=== PATIENT | female | born 1960 | race Caucasian/White ===

== ENCOUNTER 2020-09-08 14:23 | Inpatient (IN) | payer MEDICARE, SELFPAY ==
[2020-09-08] VITALS (11 sets, daily range): BP systolic 149–192; BP diastolic 60–97; PULSE 70–85; RESP 14–29; TEMP 36.4–36.6; O2SAT 97–100
--- NOTE | ~2020-09-08 | XR_ITS ---
EXAMINATION: XR chest 1V portable DATE: 09/09/2020 18:27 INDICATION: Fall. TECHNIQUE: A single frontal view of the chest was obtained. COMPARISON: Chest single view 09/29/2018 FINDINGS: There is mild atelectasis in left lower lung zone. No pleural effusion or pneumothorax. Car diomegaly is noted. There is a vascular stent overlying left subclavian region. There is a vascular s tent in left axilla. IMPRESSION: 1. Mild atelectasis in left lower lung zone. 2. Cardiomegaly. Reviewed, dictated and finalized at location A. E MACHINE OPERATOR
--- NOTE | ~2020-09-08 | XR_ITS ---
EXAMINATION: XR surgery orthopedic DATE: 09/11/2020 14:17 INDICATION: Intertrochanteric nailing of a right hip fracture. TECHNIQUE: 2 fluoroscopic spot images of the right hip were obtained during procedure performed by Dr Rogerio Yang. Radiologist was not present for the imaging or procedure. The amount of fluoroscopy time used during this procedure was 2.4 minutes. COMPARISON: CT dated 09/09/2020 FINDINGS: Lateral reduction to near-anatomic alignment of the transcervical fracture of the proximal right femu r. The fracture is fixed with cannulated lag screw spanning the femoral head as well as a lateral angely te and distal screws and femoral neck dynamic compression screw. No other fractures identified. Right femoral head remains normally centered within the right acetabulum. IMPRESSION: 1. Essentially anatomic alignment post open reduction and internal fixation of a transcervical fractu re of the proximal right femur. Reviewed, dictated and finalized at location A. SNAPPER IMPRESSION: 1. Essentially anatomic alignment post open reduction and internal fixation of a transcervical fracture of the proximal right femur.
--- NOTE | ~2020-09-08 | XR_ITS ---
EXAMINATION: XR knee RT min 4V EXAM DATE: 09/08/2020 15:08 INDICATION: Fall, limited range of motion. Right knee pain. Initial encounter. TECHNIQUE: Right knee frontal, crosstable lateral, orthogonal oblique projections for interpretation . There is no prior study for comparison. FINDINGS: There is an intact right knee arthroplasty hardware. There are no acute fractures or dislo cations identified. There is no subcutaneous gas. There is small joint effusion. There are arterial calcifications, arteriosclerosis. IMPRESSION: Intact right knee arthroplasty. Small joint effusion. Reviewed, dictated and finalized at location B. EM SOFTWARE PROGRAMMER
--- NOTE | ~2020-09-08 | XR_ITS ---
EXAMINATION: XR hip RT 2V w AP pelvis DATE: 09/08/2020 16:59 INDICATION: Right hip pain. Fall. TECHNIQUE: An anteroposterior view of the pelvis and 3 views of right hip were obtained. COMPARISON: None. FINDINGS: There is a transcervical fracture of right femoral neck. The distal fracture fragment demon strates 30 degrees varus angulation and 2 cm shortening. The hip joint spaces are normal. There are c hanges of posterior fusion procedure of lumbar spine. IMPRESSION: 1. Transcervical fracture of right femoral neck. Reviewed, dictated and finalized at location A. H BURNER
--- NOTE | ~2020-09-08 | CT_ITS ---
EXAMINATION: CT hip RT wo con DATE: 09/09/2020 09:54 INDICATION: Right hip fracture. TECHNIQUE: High resolution computed tomography (CT) of the right hip was performed without intravenou s contrast. Additional sagittal and coronal reconstructions were performed. Automated exposure contro l and iterative reconstruction technique were employed. The dose-length product was 282.75 mGy-cm. COMPARISON: None FINDINGS: There is a transcervical fracture of the proximal right femur. There is proximal migration and charge rn al rotation of the distal fragment resulting in approximately 50 degree varus angulation as well as a dditional 7 mm proximal displacement along the fracture line. The external rotation is associated wit h approximately 50 degrees posterior angulation with mild impaction along the posterior margin of the fracture and approximately 5 mm separation of the cortices along the anterior margin of the fracture plane. The right femoral head remains normally located in the right acetabulum with mild osteoarthri tis. No significant right hip joint effusion or appreciable surrounding hematoma. No other fractures identified. There are some fatty atrophy of the right gluteus minimus muscle belly. Small enthesophyt es along the greater trochanteric insertion of the gluteus medius medius and minimus tendons. IMPRESSION: 1. Transcervical fracture of the proximal right femur with proximal migration, external rotation and mild displacement. Reviewed, dictated and finalized at location A. LOADER
--- NOTE | 2020-09-08 14:38 | PC.NURSE ---
Per pt at [facility] sciatic nerve and right hip. Was given muscle relaxor and pain pill and sent home. Per pt did not go to dialysis today.
[2020-09-08 15:47] LABS: Basophils Percent Auto 0.2 % (0.2-1.2); Eosinophils Absolute Auto 0.1 K/mm3 (0-0.3); Eosinophils Percent Auto 0.6 % (0-4.4); Hematocrit 37.3 % (37.0-47.0); Hemoglobin 12.2 g/dL (12.0-15.0); Immature Granulocyte Absolute 0.03 K/mm3 (0.00-0.031); Immature Granulocyte Percent A 0.3 % (0-0.5); Lymphocytes Absolute Auto 1.49 K/mm3 (0.9-3.2); Lymphocytes Percent Auto 16.1 % (18.3-44.2); Mean Corpuscular HGB Conc 32.7 g/dl (32-36); Mean Corpuscular Hemoglobin 29.5 pg (26-34); Mean Corpuscular Volume 90.1 fl (80-100); Monocytes Absolute Auto 0.6 K/mm3 (0.1-0.6); Monocytes Percent Auto 5.9 % (2.6-8.5); Neutrophils Absolute Auto 7.1 K/mm3 (1.3-6.7); Neutrophils Percent Auto 76.9 % (45.5-73.1); Platelet Count Result 226 k/mm3 (150-375); Red Blood Count 4.14 M/mm3 (4.2-5.4); Red Cell Distribution Width 14.6 % (11.5-14.5); White Blood Count 9.3 K/mm3 (4.5-10.0)
[2020-09-08 15:58] LABS: Magnesium 2.8 mg/dL (1.6-2.3); Phosphorus 4.8 mg/dL (2.5-4.5)
[2020-09-08 16:02] LABS: Anion Gap 20 mmol/L (8-16); Blood Urea Nitrogen 93 mg/dL (7-17); Calcium 9.4 mg/dL (8.4-10.2); Carbon Dioxide 26 mmol/L (22-30); Chloride 89 mmol/L (98-107); Estimated CRCL calculation 5 ml/min; Estimated Glomerular Filt Rate 3; Glucose 198 mg/dL (65-105); Potassium 6.1 mmol/L (3.4-5.0); Sodium 135 mmol/L (137-145)
--- NOTE | 2020-09-08 16:12 | ECG_ITS ---
Measurements Intervals [place] Rate: 70 P: 52 VT: 179 QRS: 33 QRSD: 91 T: 65 QT: 405 QTc: 440 Interpretive Statements SINUS RHYTHM LOW QRS VOLTAGE IN PRECORDIAL LEADS BASELINE ARTIFACT- I, III, AVL BORDERLINE ECG Electronically Signed On 09-09-2020 7:53:37 DIRECTOR OF CONSUMER MARKETING by Kamran Clark D.O.
[2020-09-08] MEDS: CALCIUM GLUCONATE 1,000 MG/10 ML VIAL 1000 MG IV PUSH (16:25)
[2020-09-08] MEDS: SODIUM BICARBONATE 8.4% 50 MEQ/50 ML VIAL IV PUSH (16:25)
[2020-09-08] MEDS: INSULIN HUMAN REGULAR (*BKC) 100 UNITS/ML 10 UNITS IV PUSH (16:25)
[2020-09-08] MEDS: DEXTROSE 50% 25 GM/50 ML SYRINGE IV PUSH (16:25)
--- NOTE | 2020-09-08 16:30 | PC.NURSE ---
Assumed care of pt at this time. Pt is alert and upright on stretcher. Pt placed on tele monitor per EDP VORB.
--- NOTE | 2020-09-08 16:32 | ED.GENADULT ---
HPI - General Adult General Chief complaint: Extremity Injury, Lower Stated complaint: Right Knee Pain Time Seen by Provider: 09/08/20 14:39 Source: patient Mode of arrival: EMS Limitations: no limitations History of Present Illness HPI narrative: Patient is a 59-year-old female who presents to emergency department for evaluation of right knee pain patient was returning home today and upon trying to enter her home had a pop in the right knee and has since had moderate to severe pain with inability to bear weight patient notes that she had been seen at an outside hospital today due to back pain over the last several days radiating down the right leg was diagnosed with sciatica had imaging performed and was sent home with pain pills and muscle relaxers which made her lightheaded per patient. Patient denies any injury or trauma or having fallen. On arrival patient with difficulty with movement of the right leg with pain on palpation of the knee. Patient missed dialysis today and is followed by Dr. Bobby notes that she did have dialysis on Tuesday. Related Data Home Medications Medication Instructions Recorded Confirmed sevelamer carbonate [Renvela] 800 mg PO TID 05/21/19 08/14/19 vitamin B complex-vitamin C-folic 1 tablet PO DAILY 08/14/19 08/14/19 acid 0.8 mg tablet Allergies Allergy/AdvReac Type Severity Reaction Status Date / Time amoxicillin Allergy Swelling Verified 09/08/20 14:40 iodine Allergy Other Verified 09/08/20 14:40 Review of Systems Review of Systems: All systems reviewed & are unremarkable except as noted in HPI and below PMFSH Past Medical History Medical History (Updated 09/08/20 @ 18:03 by Tien Knox PA-C) CHF (congestive heart failure) EF 35% CKD (chronic kidney disease) Stage V Diabetes type 2, controlled Dialysis patient , [place], Sat Family History Family History Father Cerebrovascular accident Family history of coronary artery disease Mother Family history of diabetes mellitus in first degree relative Family history of malignant neoplasm of bone Family history of malignant neoplasm of cervix Sibling Hypertension Social History Social History Smoking status: Never smoker Second hand tobacco smoke exposure: No Alcohol intake: never Gender identity (if verbalized by the patient): Female Exam Narrative: Exam Narrative: GENERAL: Well-appearing, obese, and in no acute distress. HEAD: Normocephalic, atraumatic. EYES: PERRLA and EOMI. ENT: Nares clear, no rhinorrhea or epistaxis. Mucous membranes moist. NECK: Supple. No adenopathy or masses. CHEST: Clear to auscultation. No respiratory distress. No wheezes rales or rhonchi HEART: Regular rate and rhythm. No murmur heard. Normal peripheral pulses. ABDOMEN: Soft, nontender,distended EXTREMITIES: Tenderness of the right knee joint no obvious deformities minimal swelling if any. Also notes tenderness of the right hip. No cervical thoracic lumbar tenderness on palpation SKIN: Warm, dry, no rash. NEURO: No focal deficits. Alert and oriented x3. Neurovascularly intact. Cap refill less than 2 seconds PSYCH: Normal mood and affect. Course Consultations Consultation #1: Patient case discussed with nephrology who will plan to do dialysis tomorrow patient will be placed in hospital treated for her elevated potassium. Patient will be consulted by orthopedic surgery admitted to the hospitalist service Date: 09/08/20 Time: 16:46 Consultation #2: Discussed case with hospitalist who is aware of the patient has agreed to accept the patient Date: 09/08/20 Time: 17:14 Consultation #3: Discussed case with Dr. Yang who will consult on patient Date: 09/08/20 Time: 18:01 Vital Signs Vital signs: Vital Signs Temperature 97.8 F 09/08/20 14:31 Pulse Rate 70 09/08/20 14:31 Respiratory Rate 20 09/08/20 1
--- NOTE | 2020-09-08 16:36 | PC.NURSE ---
Pt to XRAY via stretcher at this time.
[2020-09-08] MEDS: MORPHINE SULFATE (*CRX) 4 MG/ML INJ IV PUSH ×3 (17:42→22:35)
[2020-09-08 18:02] LABS: Glucose Point of Care 131 (65-105)
--- NOTE | 2020-09-08 19:00 | PC.NURSE ---
Assumed care of pt. at this time. report from MELLY Duarte
--- NOTE | 2020-09-08 19:21 | PC.NURSE ---
CT called to bean picker machine operator pt. for imaging.
[2020-09-08 21:40] LABS: Glucose Point of Care 206 (65-105)
[2020-09-08 22:35] LABS: Potassium 5.7 mmol/L (3.4-5.0)
--- NOTE | 2020-09-08 23:44 | PM.IMHP ---
H&P: HPI History of Present Illness Date/Time: 09/08/20 23:44 Chief Complaint: Right knee pain Narrative: Kate Bentley is a 59 year old female with a past medical history of end-stage renal disease on hemodialysis Tuesday and type 2 diabetes mellitus who presented to the ER after sudden onset of pain in her right leg. The patient reports that she woke up on the morning of the . She was having pain in her SI region. She went to the hospital in [place] and they did x-rays and was diagnosed with sciatica. She was discharged home with pain medications and muscle relaxers. She took those medications but they made her lightheaded. When she was trying to get out of her car to go inside after she had went to [place] she felt a sharp pop in her knee. She stated that she did not actually fall but does could not put any weight on her leg. She reported that the pain was severe. The pain was similar to the pain she had earlier in the day. The pain was severe and she reported that she felt like she was going to pass out due to the pain. Pain is worse with any movement. She reports that the pain was so bad that she did not go to hemodialysis. She denies any shortness of breath, palpitations or chest pain. She has not had any nausea or vomiting. She reports a good appetite. She denies any changes in her bowel habits. She does not making urine. Review of Systems Review of Systems: Narrative: 12 systems were reviewed with pertinent positives and negatives per HPI. Except as documented in the HPI, all other systems were reviewed and are negative. [facility] Past Medical History Medical History (Updated 09/09/20 @ 00:01 by Rebecca Collins DO) Anemia in chronic kidney disease CHF (congestive heart failure) EF 35% End-stage renal disease on hemodialysis On hemodialysis since June 2017; dialysis Tuesday followed by Dr. Kaur Iron deficiency anemia Kidney stones Type 2 diabetes mellitus 07/31/2020 hemoglobin A1c 7.1 Surgical History Surgical History (Updated 09/09/20 @ 01:17 by Rebecca Collins DO) AV fistula Left upper arm AV fistula created 2017 H/O arthroscopy of right knee History of bilateral carpal tunnel release History of left knee replacement August 2018 History of lumbar surgery Spinal stenosis History of total right knee replacement May 2018 Family History Family History (Updated 09/08/20 @ 23:59 by Rebecca Collins DO) Father , in his 40s of premature coronary artery disease Cerebrovascular accident Heart disease Mother Diabetes mellitus Bone cancer Cervical cancer Sibling , of heart disease in his 50s Hypertension Heart disease Diabetes mellitus Social History Social History (Updated 09/08/20 @ 23:56 by Rebecca Collins DO) Social History: 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 1 daughter who is 24 years old. Smoking status: Never smoker Second hand tobacco smoke exposure: No Alcohol intake: never Substance use: never Gender identity (if verbalized by the patient): Male Spiritual care concerns: No Meds Home Medications and Allergies Home Medications Medication Instructions Recorded Confirmed Type sevelamer carbonate [Renvela] 800 mg PO TID 05/21/19 09/08/20 History vitamin B complex-vitamin C-folic 1 tablet PO DAILY 08/14/19 09/08/20 History acid 0.8 mg tablet insulin aspart U-100 100 unit/mL See Rx Instructions .ROUTE 07/31/20 09/08/20 Rx subcutaneous solution .COMPLEX #30 ml flash glucose sensor #6 ea 08/18/20 09/08/20 Rx insulin syringe-needle U-100 0.3 See Rx Instructions .ROUTE 08/28/20 09/08/20 Rx mL 31 gauge x 15/64 .COMPLEX #100 syringe insulin detemir U-100 [Levemir 25 unit SUB-Q DAILY 09/08/20 09/08/20 History U-100 Insulin] midodrine See Rx Instructions .ROUTE .COMPLEX 09/08/20 09/08/20 History Allergies Allergy/AdvReac Type Nereyda
[2020-09-09] VITALS (23 sets, daily range): BP systolic 100–197; BP diastolic 51–89; PULSE 77–128; RESP 18–20; TEMP 36.6–37.4; O2SAT 94–95
[2020-09-09] MEDS: INSULIN ASPART (*BKC) 100 UNITS/ML SUB-Q (00:30)
[2020-09-09] MEDS: SODIUM BICARBONATE 8.4% 50 MEQ/50 ML SYRINGE IV PUSH (00:42)
[2020-09-09] MEDS: CALCIUM GLUCONATE 1,000 MG/10 ML VIAL 1000 MG IV PUSH (00:48)
[2020-09-09] MEDS: MORPHINE SULFATE (*CRX) 4 MG/ML INJ IV PUSH ×6 (01:06→18:42)
[2020-09-09 06:45] LABS: Basophils Percent Auto 0.1 % (0.2-1.2); Eosinophils Absolute Auto 0.1 K/mm3 (0-0.3); Eosinophils Percent Auto 0.7 % (0-4.4); Hemoglobin 11.1 g/dL (12.0-15.0); Immature Granulocyte Absolute 0.03 K/mm3 (0.00-0.031); Immature Granulocyte Percent A 0.3 % (0-0.5); Lymphocytes Percent Auto 11.2 % (18.3-44.2); Mean Corpuscular HGB Conc 32.6 g/dl (32-36); Mean Corpuscular Hemoglobin 29.8 pg (26-34); Mean Corpuscular Volume 91.2 fl (80-100); Mean Platelet Volume 10.2 fl (7.4-10.4); Monocytes Absolute Auto 0.7 K/mm3 (0.1-0.6); Monocytes Percent Auto 6.7 % (2.6-8.5); Neutrophils Absolute Auto 7.9 K/mm3 (1.3-6.7); Platelet Count Result 177 k/mm3 (150-375); Red Blood Count 3.73 M/mm3 (4.2-5.4); Red Cell Distribution Width 14.6 % (11.5-14.5); White Blood Count 9.8 K/mm3 (4.5-10.0)
[2020-09-09 07:02] LABS: Alanine Aminotransferase 16 U/L (4-35); Albumin Level 3.8 g/dL (3.5-5.1); Alkaline Phosphatase 123 U/L (38-126); Anion Gap 17 mmol/L (8-16); Aspartate Amino Transferase 27 U/L (14-36); Bilirubin,Total 1.1 mg/dL (0.2-1.3); Blood Urea Nitrogen 94 mg/dL (7-17); Calcium 8.8 mg/dL (8.4-10.2); Carbon Dioxide 28 mmol/L (22-30); Chloride 85 mmol/L (98-107); Estimated CRCL calculation 5 ml/min; Estimated Glomerular Filt Rate 3; Glucose 198 mg/dL (65-105); Potassium 5.8 mmol/L (3.4-5.0); Sodium 130 mmol/L (137-145)
[2020-09-09 08:23] LABS: Glucose Point of Care 193 (65-105)
--- NOTE | 2020-09-09 08:54 | PC.NURSE ---
Spoke with Dr. Dutton on if he wanted 25 units of levimer this morning. He said to hold it d/t her having dialysis today and possible hip surgery. Her blood sugar was 193 this morning.
[2020-09-09 10:47] LABS: Hepatitis B Surface Antigen Negative (Negative)
[2020-09-09 11:11] LABS: Hepatitis B Surface Anti Res Positive
--- NOTE | 2020-09-09 11:25 | PM.IMPN ---
Progress Note: A&P Assessment and Plan (1) Acute hyperkalemia: Code(s): E87.5 - Hyperkalemia Status: Acute Assessment and Plan: Patient repeat potassium is 5.8 patient is going to get dialysis today and hopefully after dialysis patient electrolytes were normalized. (2) End-stage renal disease on hemodialysis: Code(s): N18.6 - End stage renal disease; Z99.2 - Dependence on renal dialysis Status: Acute Assessment and Plan: Nephrology consult in dialysis schedule. (3) Closed fracture of right hip: Qualifiers: Encounter type: initial encounter Qualified Code(s): S72.001A - Fracture of unspecified part of neck of right femur, initial encounter for closed fracture Code(s): S72.001A - Fracture of unspecified part of neck of right femur, initial encounter for closed fracture Status: Acute Assessment and Plan: Orthopedic consult ordered. Hemoglobin stable. (4) Type 2 diabetes mellitus with hyperglycemia: Qualifiers: Diabetes mellitus terminal system operator insulin use: with jail use Qualified Code(s): E11.65 - Type 2 diabetes mellitus with hyperglycemia; Z79.4 - manager intermediate (current) use of insulin Code(s): E11.65 - Type 2 diabetes mellitus with hyperglycemia Status: Acute Assessment and Plan: Stable on current medication. Additional Plan Patient who presented to the ER with knee pain and found to have a right femoral neck fracture. Patient is receiving pain medications with good relief in symptoms. Patient denies chest pain shortness of breath or palpitations. She does have end-stage renal disease on hemodialysis and is hyperkalemic. Her hyperkalemia has improved but not resolved since administration of bicarb, calcium, insulin and dextrose in the ER. The patient will receive hemodialysis in a.m.. Once her electrolyte abnormalities have stabilized the patient will be medically stable for surgical repair. Patient's electrolytes and glucoses will need to be monitored closely in the postoperative period. Patient has been resume the home Levemir and has been placed on sliding scale insulin. This document was completed by using [employer] Direct speech recognition software, therefore, video tape transferrer variances may occur. Despite proof reading and review of records errors may persist. Subjective Date/time seen: 09/09/20 11:25 Interval history: Patient was seen during the morning rounds today. Patient today pain is under control. Patient denies any shortness of breath or chest pain. Mood stable. Review of Systems Review of Systems: All systems reviewed & are unremarkable except as noted in HPI and below (the history and physical exam.) Exam Narrative: Exam Narrative: PHYSICAL EXAM: WEIGHT 100 kg BMI 39.1 General: No acute distress, appears older than stated age, obese HEENT: Mucous membranes are dry, no oral pharyngeal erythema, good dentition, pupils are equal and reactive, head is normocephalic atraumatic, large neck circumference Respiratory: Clear to auscultation bilaterally, no increased work of Cardiovascular: Regular rate, regular rate, regular rhythm, no murmurs Gastrointestinal:, distended, nontender, positive bowel sounds Skin: Generalized pallor, non jaundice Musculoskeletal: No clubbing, cyanosis or edema, pain in the right knee and hip with any movement of the legs, leg is not rotated or shortened Neurological: Alert and oriented, speech is clear, no facial asymmetry Psychiatric: Appropriate mood and affect, cooperative : Deferred Hematologic/lymphatic: No petechiae, no bruising, no lymphadenopathy Objective Data Vital Signs Vital Signs: Vital Signs - 24 hr 09/08/20 14:31 09/08/20 17:00 09/08/20 17:42 Temperature 36.6 C Pulse Rate 70 76 77 Respiratory Rate 20 26 H 24 H Blood Pressure 175/76 H 183/76 H 192/72 H Pulse Oximetry 99 100 100 09/08/20 18:44 09/08/20 19:25 09/08/20 19:27 Temperature Puls
--- NOTE | 2020-09-09 11:27 | PC.NURSE ---
[place] traction started at 0830am.to right leg.
--- NOTE | 2020-09-09 12:22 | PM.PNNEP ---
Subjective Date/time seen: 09/09/20 12:22 Objective Data Vital Signs Vital Signs: Vital Signs Temp Pulse Resp BP Pulse Ox 09/09/20 08:00 98 20 95 09/09/20 06:00 36.9 C 88 20 135/52 L 95 09/09/20 04:00 82 09/09/20 00:00 86 09/08/20 20:15 36.4 C 85 20 164/60 H 100 09/08/20 19:47 80 15 149/62 H 09/08/20 19:45 84 29 H 97 09/08/20 19:32 75 23 H 150/66 H 99 09/08/20 19:30 79 14 99 09/08/20 19:27 81 28 H 173/97 H 09/08/20 19:25 75 25 H 09/08/20 18:44 77 16 160/78 H 100 09/08/20 17:42 77 24 H 192/72 H 100 09/08/20 17:00 76 26 H 183/76 H 100 09/08/20 14:31 36.6 C 70 20 175/76 H 99 Intake/Output Intake/Output: Intake & Output 09/06/20 09/07/20 09/08/20 09/09/20 23:59 23:59 23:59 23:59 Intake Total 100 240 Balance 100 240 Meds/Results Medications: Active Medications Generic Name Dose Route Start Last Admin Trade Name Freq PRN Reason Stop Dose Admin Glucagon 1 mg 09/08/20 18:10 Glucagon For Inj 1 Mg Vial IM PRN PRN Hypoglycemia Protocol Dextrose 1,000 mls @ 100 mls/hr 09/08/20 18:10 Dextrose 5% 1,000 Ml IVPB PRN PRN Hypoglycemia Protocol Albumin Human 50 mls @ 999 mls/hr 09/09/20 06:54 Albutein IVPB 10/09/20 06:55 Q10M PRN HYPOTENSION Insulin Aspart 4 - 8 units 09/09/20 08:00 09/09/20 08:33 Insulin Aspart (*Bkc) 100 Units/Ml SUB-Q Not Given TIDWM RENEA Protocol Insulin Detemir 25 units 09/09/20 09:00 Insulin Detemir 100 Units/Ml SUB-Q 10/09/20 09:01 DAILY RENEA Midodrine 5 mg 09/10/20 09:00 Midodrine Hcl 2.5 Mg Tablet BY MOUTH MoWeFr [facility] Morphine Sulfate 4 mg 09/08/20 18:07 09/09/20 07:35 Morphine Sulfate (*Crx) 4 Mg/Ml Inj IV PUSH 4 mg Q2H PRN Administration Pain Rated 7-10 Sevelamer Carbonate 800 mg 09/09/20 08:00 Sevelamer Carbonate 800 Mg Tablet PO TIDWM [facility] Vitamin B Complex/Folic Acid 1 cap 09/09/20 09:00 Vitamin B Cmplx/Vit C/Folic Ac 1 Capsule PO QAM [facility] Radiology Results: ITS Impressions Knee X-Ray 09/08/20 15:12 IMPRESSION: Intact right knee arthroplasty. Small joint effusion. Hip/Pelvis X-Ray 09/08/20 17:00 IMPRESSION: 1. Transcervical fracture of right femoral neck. Labs Labs: Laboratory Tests 09/09/20 06:13 09/09/20 06:13
[2020-09-09 12:35] LABS: Glucose Point of Care 203 (65-105)
--- NOTE | 2020-09-09 12:45 | PM.CNNEP ---
Assessment and Plan Assessment and plan (1) End stage renal disease: Code(s): N18.6 - End stage renal disease Status: Chronic Assessment and Plan: HD today and eventually transition back to M/W/F schedule follow electrolytes, volume status, and clearance (2) Acute hyperkalemia: Code(s): E87.5 - Hyperkalemia Status: Acute Assessment and Plan: presumably secondary to missed treatment yesterday dialysis today for correction (3) Basicervical fracture of neck of right femur: Qualifiers: Encounter type: initial encounter Fracture type: closed Fracture alignment: displaced Qualified Code(s): S72.041A - Displaced fracture of base of neck of right femur, initial encounter for closed fracture Code(s): S72.041A - Displaced fracture of base of neck of right femur, initial encounter for closed fracture Status: Acute Assessment and Plan: as noted by imaging studies on admission Orthopedics consulted for further evaluation (4) Elevated blood pressure reading: Code(s): R03.0 - Elevated blood-pressure reading, without diagnosis of hypertension Status: Acute Assessment and Plan: BP is usually well controlled without medications uses midodrine with dialysis treatments suspect elevated more so due to pain issues from fracture (5) Diabetes: Code(s): E11.9 - Type 2 diabetes mellitus without complications Status: Acute Assessment and Plan: follow accuchecks glycemic control Will continue to follow. History of Present Illness Reason for Consult Consult date: 09/09/20 Reason for consult: end stage renal disease Chief Complaint Chief complaint: right hip fracture, hyperkalemia History of Present Illness Narrative: The patient is a 59-year-old female with a past medical history as outlined below who presented to [facility] Emergency room with complaints right leg pain. On the day of admission, before the patient reports that she woke up with the a for mentioned pain in her leg. She felt the pain was coming more so from her lower back but she was not sure. She went to the ER in [place] for further evaluation and apparently they did x-rays and gave her a diagnosis of sciatica and discharged her with some pain medications and muscle relaxers. She took these medications and did not really seem to help with her pain and only just made her more lightheaded. Later on, when she was trying to get out of her car, she felt a sharp pop in her right knee that is associated with immediate pain in that extremity. The pain was apparently so severe that she felt like she was going to pass out. Due to the severity of the pain, she did not go to her regularly out scheduled outpatient dialysis treatment and because the pain continued to worsen she came to [facility] ER for further evaluation. Workup and evaluation emergency room demonstrated the patient to be a somewhat hypertensive (thought to be secondary to pain) and clearly in distress secondary to the severity of the pain that she was having. Routine blood tests were significant for labs consistent with her known history of end-stage renal disease however her potassium was somewhat elevated. Further imaging studies of her lower extremity demonstrated a right hip fracture that presumably was the cause of her pain. Given the constellation of symptoms that led to her presentation to the ER as well as the a for mentioned imaging findings, she was admitted the hospital for further evaluation and therapy. Renal consultation was requested due to her end-stage renal disease. The patient is familiar to me as I take care of her outpatient dialysis needs. She normally dialyzes on a Tuesday, Tuesday, Tuesday dialysis schedule under my care at [facility]. As already mentioned, she missed her dialysis treatment yesterday due to the severity of her pain and is due fo
--- NOTE | 2020-09-09 16:41 | PM.CNOR ---
Assessment and Plan Assessment and plan (1) Basicervical fracture of neck of right femur: Qualifiers: Encounter type: initial encounter Fracture type: closed Fracture alignment: displaced Qualified Code(s): S72.041A - Displaced fracture of base of neck of right femur, initial encounter for closed fracture Code(s): S72.041A - Displaced fracture of base of neck of right femur, initial encounter for closed fracture Status: Acute Assessment and Plan: 59-year-old female with a basicervical right femoral neck fracture. This will need to be stabilized surgically. Plan on doing an open reduction internal fixation.Risks and potential complications were discussed in detail and questions answered. She is at increased risk for complications because of her chronic renal failure and requirement of hemodialysis. She is going to be essentially nonweightbearing with respect to her right lower extremity for a minimum of eight weeks which is most certainly going to require retirement placement as she lives alone and had a believe that should be able to adequately protect this. Failure is a very real possibility and I discussed that with her in detail. Tentatively we will plan on trying to get this done on which will be in between her dialysis appointments. Thank you for the consultation. History of Present Illness HPI Consult date: 09/09/20 Chief complaint: right hip fracture, hyperkalemia Review of Systems Constitutional: Constitutional: Denies chills Eyes: Eyes: Reports no additional eye complaints ENT: Reports system reviewed and no additional complaints, except as documented Cardiovascular: Cardiovascular: Denies chest pain Respiratory: Respiratory: Reports no additional respiratory complaints Gastrointestinal: Gastrointestinal: Denies abdominal pain PMFSH Past Medical History Medical History Anemia in chronic kidney disease CHF (congestive heart failure) EF 35% End-stage renal disease on hemodialysis On hemodialysis since June 2017; dialysis Tuesday followed by Dr. Kaur Iron deficiency anemia Kidney stones Type 2 diabetes mellitus 07/31/2020 hemoglobin A1c 7.1 Surgical History Surgical History AV fistula Left upper arm AV fistula created 2017 H/O arthroscopy of right knee History of bilateral carpal tunnel release History of left knee replacement August 2018 History of lumbar surgery Spinal stenosis History of total right knee replacement May 2018 Family History Family History Father , in his 40s of premature coronary artery disease Cerebrovascular accident Heart disease Mother Diabetes mellitus Bone cancer Cervical cancer Sibling , of heart disease in his 50s Hypertension Heart disease Diabetes mellitus Social History Social History Social History: 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 1 daughter who is 24 years old. Smoking status: Never smoker Second hand tobacco smoke exposure: No Alcohol intake: never Substance use: never Gender identity (if verbalized by the patient): Male Spiritual care concerns: No Meds Home Medications and Allergies Home Medications Medication Instructions Recorded Confirmed Type sevelamer carbonate [Renvela] 800 mg PO TID 05/21/19 09/08/20 History vitamin B complex-vitamin C-folic 1 tablet PO DAILY 08/14/19 09/08/20 History acid 0.8 mg tablet insulin aspart U-100 100 unit/mL See Rx Instructions .ROUTE 07/31/20 09/08/20 Rx subcutaneous solution .COMPLEX #30 ml flash glucose sensor #6 ea 08/18/20 09/08/20 Rx insulin syringe-needle U-100 0.3 See Rx Instructions .ROUTE 08/28/20 09/08/20 Rx mL 31 gauge x 15/64
[2020-09-09 18:03] LABS: Glucose Point of Care 174 (65-105)
[2020-09-09] MEDS: SEVELAMER CARBONATE 800 MG TABLET PO (18:42)
[2020-09-10] VITALS (26 sets, daily range): BP systolic 101–170; BP diastolic 50–92; PULSE 66–107; RESP 16–20; TEMP 36–37.2; O2SAT 92–97
[2020-09-10] MEDS: MORPHINE SULFATE (*CRX) 4 MG/ML INJ IV PUSH ×2 (00:44→15:30)
[2020-09-10 07:37] LABS: Albumin Level 3.9 g/dL (3.5-5.1); Anion Gap 19 mmol/L (8-16); Blood Urea Nitrogen 48 mg/dL (7-17); Carbon Dioxide 22 mmol/L (22-30); Chloride 89 mmol/L (98-107); Estimated CRCL calculation 7 ml/min; Estimated Glomerular Filt Rate 4; Glucose 237 mg/dL (65-105); Phosphorus 6.4 mg/dL (2.5-4.5); Potassium 6.3 mmol/L (3.4-5.0); Sodium 130 mmol/L (137-145)
[2020-09-10] MEDS: ACETAMINOPHEN 325 MG TABLET 650 MG PO ×2 (08:12→23:13)
[2020-09-10] MEDS: INSULIN ASPART (*BKC) 100 UNITS/ML SUB-Q (08:17)
[2020-09-10] MEDS: INSULIN DETEMIR 100 UNITS/ML 25 UNITS SUB-Q (08:17)
[2020-09-10] MEDS: SEVELAMER CARBONATE 800 MG TABLET PO (08:23)
[2020-09-10] MEDS: MIDODRINE HCL 2.5 MG TABLET 5 MG BY MOUTH (08:23)
[2020-09-10] MEDS: VITAMIN B CMPLX/VIT C/FOLIC AC 1 CAPSULE 1 CAP PO (08:24)
[2020-09-10 09:28] LABS: Glucose Point of Care 238 (65-105)
[2020-09-10] MEDS: SEVELAMER CARBONATE 800 MG TABLET 2400 MG PO (11:16)
--- NOTE | 2020-09-10 11:36 | PM.PNORT ---
Progress Note: A&P Assessment and Plan (1) Basicervical fracture of neck of right femur: Qualifiers: Encounter type: initial encounter Fracture type: closed Fracture alignment: displaced Qualified Code(s): S72.041A - Displaced fracture of base of neck of right femur, initial encounter for closed fracture Code(s): S72.041A - Displaced fracture of base of neck of right femur, initial encounter for closed fracture Status: Acute Assessment and Plan: 59-year-old female with a right femoral neck fracture. Plan surgical stabilization tomorrow. Discussed with her again the rationale for ORIF.Risks and potential complications were discussed in detail and questions answered. She will be kept NPO after midnight tonight. Subjective Subjective Date/Time Seen: 09/10/20 11:36 Principal diagnosis: Right femoral neck fracture Interval history: 59-year-old female with multiple medical issues. She has a basicervical right femoral neck fracture. Plan will be to stabilize this surgically tomorrow in between her dialysis sessions which are today and Tuesday. No new complaints with respect to her right hip. Exam Const: General: cooperative, comfortable and no acute distress Nutritional Appearance: obese morbidly obese Extrem: Other: Right lower extremity short and rotated. Pain with manipulation of the right hip. No other acute findings. Objective Data Vital Signs Vital Signs: Vital Signs - 24 hr 09/09/20 12:00 09/09/20 14:00 09/09/20 14:05 Temperature 98.8 F Pulse Rate 95 100 Respiratory Rate 18 18 Blood Pressure 157/80 H Pulse Oximetry 09/09/20 14:12 09/09/20 14:30 09/09/20 14:45 Temperature Pulse Rate 97 96 98 Respiratory Rate Blood Pressure 178/87 H 188/89 H 147/73 H Pulse Oximetry 09/09/20 15:00 09/09/20 15:15 09/09/20 15:30 Temperature Pulse Rate 93 104 H 105 H Respiratory Rate Blood Pressure 152/76 H 176/85 H 176/85 H Pulse Oximetry 09/09/20 15:45 09/09/20 16:00 09/09/20 16:15 Temperature Pulse Rate 107 H 102 H 114 H Respiratory Rate Blood Pressure 197/73 H 152/70 H 138/67 Pulse Oximetry 09/09/20 16:30 09/09/20 16:45 09/09/20 17:00 Temperature Pulse Rate 77 104 H 128 H Respiratory Rate Blood Pressure 100/68 117/51 L 132/66 Pulse Oximetry 09/09/20 17:12 09/09/20 17:25 09/09/20 20:00 Temperature 99.4 F Pulse Rate 111 H 80 112 H Respiratory Rate 20 Blood Pressure 130/76 156/76 H Pulse Oximetry 09/09/20 21:50 09/10/20 00:00 09/10/20 04:00 Temperature 97.9 F Pulse Rate 105 H 104 H 107 H Respiratory Rate 18 Blood Pressure 137/62 Pulse Oximetry 94 09/10/20 05:15 09/10/20 08:00 Temperature 98.4 F Pulse Rate 104 H 101 H Respiratory Rate 20 Blood Pressure 144/64 H Pulse Oximetry 92 Intake/Output Intake/Output: Intake & Output 09/07/20 09/08/20 09/09/20 09/10/20 23:59 23:59 23:59 23:59 Intake Total 100 / 100 480 / 480 440 / 440 Output Total 2500 / 2500 0 / 0 Balance 100 / 100 -2020 / -2020 440 / 440 Meds/Results Medications: Active Medications Generic Name Dose Route Start Last Admin Trade Name Freq PRN Reason Stop Dose Admin Acetaminophen 650 mg 09/10/20 07:51 09/10/20 08:12 Acetaminophen 325 Mg Tablet PO 650 mg Q6H PRN Administration Mild Pain (1-3) or Fever Glucagon 1 mg 09/08/20 18:10 Glucagon For Inj 1 Mg Vial IM PRN PRN Hypoglycemia Protocol Dextrose 1,000 mls @ 100 mls/hr 09/08/20 18:10 Dextrose 5% 1,000 Ml IVPB PRN PRN Hypoglycemia Protocol Albumin Human 50 mls @ 999 mls/hr 09/09/20 06:54 Albutein IVPB 10/09/20 06:55 Q10M PRN HYPOTENSION Insulin Aspart 4 - 8 units 09/09/20 08:00 09/10/20 08:17 Insulin Aspart (*Bkc) 100 Units/Ml SUB-Q 4 units TIDWM RENEA Administration Protocol Insulin Detemir 25 units 09/09/20 09:00 09/10/20 08:17 Insulin Detemir 100 Units/Ml
--- NOTE | 2020-09-10 13:08 | PM.IMPN ---
Progress Note: A&P Assessment and Plan (1) Acute hyperkalemia: Code(s): E87.5 - Hyperkalemia Status: Acute Assessment and Plan: Patient repeat potassium is high, patient is going to get dialysis today and hopefully after dialysis patient electrolytes were normalized. (2) End-stage renal disease on hemodialysis: Code(s): N18.6 - End stage renal disease; Z99.2 - Dependence on renal dialysis Status: Acute Assessment and Plan: Nephrology consult in dialysis schedule. (3) Closed fracture of right hip: Qualifiers: Encounter type: initial encounter Qualified Code(s): S72.001A - Fracture of unspecified part of neck of right femur, initial encounter for closed fracture Code(s): S72.001A - Fracture of unspecified part of neck of right femur, initial encounter for closed fracture Status: Deleted Assessment and Plan: Orthopedic consult ordered. Hemoglobin stable. Surgery scheduled for tomorrow. (4) Type 2 diabetes mellitus with hyperglycemia: Qualifiers: Diabetes mellitus emt intermediate insulin use: with fci use Qualified Code(s): E11.65 - Type 2 diabetes mellitus with hyperglycemia; Z79.4 - longterm (current) use of insulin Code(s): E11.65 - Type 2 diabetes mellitus with hyperglycemia Status: Acute Assessment and Plan: Stable on current medication. Additional Plan Patient who presented to the ER with knee pain and found to have a right femoral neck fracture. Patient is receiving pain medications with good relief in symptoms. Patient denies chest pain shortness of breath or palpitations. She does have end-stage renal disease on hemodialysis and is hyperkalemic. Her hyperkalemia has improved but not resolved since administration of bicarb, calcium, insulin and dextrose in the ER. The patient will receive hemodialysis in a.m.. Once her electrolyte abnormalities have stabilized the patient will be medically stable for surgical repair. Patient's electrolytes and glucoses will need to be monitored closely in the postoperative period. Patient has been resume the home Levemir and has been placed on sliding scale insulin. This document was completed by using [employer] speech recognition software, therefore, project development engineer variances may occur. Despite proof reading and review of records errors may persist. Subjective Date/time seen: 09/10/20 13:08 Interval history: Patient was seen during the morning rounds today. Patient today pain is under control. Patient denies any shortness of breath or chest pain. No new complaint. Mood stable. Review of Systems Review of Systems: All systems reviewed & are unremarkable except as noted in HPI and below (the history and physical exam.) Exam Narrative: Exam Narrative: PHYSICAL EXAM: WEIGHT 100 kg BMI 39.1 General: No acute distress, appears older than stated age, obese HEENT: Mucous membranes are dry, no oral pharyngeal erythema, good dentition, pupils are equal and reactive, head is normocephalic atraumatic, large neck circumference Respiratory: Clear to auscultation bilaterally, no increased work of Cardiovascular: Regular rate, regular rate, regular rhythm, no murmurs Gastrointestinal:, distended, nontender, positive bowel sounds Skin: Generalized pallor, non jaundice Musculoskeletal: No clubbing, cyanosis or edema, pain in the right knee and hip with any movement of the legs, leg is not rotated or shortened Neurological: Alert and oriented, speech is clear, no facial asymmetry Psychiatric: Appropriate mood and affect, cooperative : Deferred Hematologic/lymphatic: No petechiae, no bruising, no lymphadenopathy Objective Data Vital Signs Vital Signs: Vital Signs - 24 hr 09/09/20 14:00 09/09/20 14:05 09/09/20 14:12 Temperature 37.1 C Pulse Rate 100 97 Respiratory Rate 18 18 Blood Pressure 157/80 H 178/87 H Pulse Oximetry 09/09/20 14:30 09/09/20 14:45
--- NOTE | 2020-09-10 15:00 | PM.PNNEP ---
Progress Note: A&P Assessment and Plan (1) End stage renal disease: Code(s): N18.6 - End stage renal disease Status: Chronic Assessment and Plan: HD today to resume her M/W/F dialysis schedule follow electrolytes, volume status, and clearance (2) Acute hyperkalemia: Code(s): E87.5 - Hyperkalemia Status: Acute Assessment and Plan: unclear why elevated again this AM since she had dialysis yesterday dietary indiscretion?? HD again today and adjust potassium bath to compensate (3) Basicervical fracture of neck of right femur: Qualifiers: Encounter type: initial encounter Fracture alignment: displaced Fracture type: closed Qualified Code(s): S72.041A - Displaced fracture of base of neck of right femur, initial encounter for closed fracture Code(s): S72.041A - Displaced fracture of base of neck of right femur, initial encounter for closed fracture Status: Acute Assessment and Plan: as noted by imaging studies on admission Orthopedics recommendations noted will need surgical intervention (4) Elevated blood pressure reading: Code(s): R03.0 - Elevated blood-pressure reading, without diagnosis of hypertension Status: Acute Assessment and Plan: BP is usually well controlled without medications uses midodrine with dialysis treatments suspect elevated more so due to pain issues from fracture (5) Diabetes: Code(s): E11.9 - Type 2 diabetes mellitus without complications Status: Acute Assessment and Plan: follow accuchecks on SSI and Detemir Will continue to follow. Subjective Date/time seen: 09/10/20 15:00 Patient tolerating dialysis at the time of my visit (seen on HD at 2:50PM); sleeping comfortably during dialysis treatment; no new issues or problems to report; pain control appears satisfactory at this time. Exam Narrative: Exam Narrative: General: WD/WN male/female in NAD Heart: normal S1 and S2; no rub Lungs: clear to auscultation Abdomen: soft, nontender, nondistended, positive bowel sounds Extremities: no cyanosis or clubbing; no edema Skin: warm and dry Objective Data Vital Signs Vital Signs: Vital Signs Temp Pulse Resp BP Pulse Ox 09/10/20 12:00 95 09/10/20 08:00 101 H 09/10/20 05:15 36.9 C 104 H 20 144/64 H 92 09/10/20 04:00 107 H 02/24/21 00:00 104 H 09/09/20 21:50 36.6 C 105 H 18 137/62 94 09/09/20 20:00 112 H 09/09/20 17:25 37.4 C 80 20 156/76 H 09/09/20 17:12 111 H 130/76 Intake/Output Intake/Output: Intake & Output 09/07/20 09/08/20 09/09/20 09/10/20 23:59 23:59 23:59 23:59 Intake Total 100 480 440 Output Total 2500 0 Balance -2019 440 Meds/Results Medications: Active Medications Generic Name Dose Route Start Last Admin Trade Name Freq PRN Reason Stop Dose Admin Acetaminophen 650 mg 09/10/20 07:51 09/10/20 08:12 Acetaminophen 325 Mg Tablet PO 650 mg Q6H PRN Administration Mild Pain (1-3) or Fever Glucagon 1 mg 09/08/20 18:10 Glucagon For Inj 1 Mg Vial IM PRN PRN Hypoglycemia Protocol Heparin Sodium (Porcine) 5,000 units 09/10/20 21:00 Heparin Sodium 5,000 Units/Ml Vial SUB-Q Q12HR RENEA Dextrose 1,000 mls @ 100 mls/hr 09/08/20 18:10 Dextrose 5% 1,000 Ml IVPB PRN PRN Hypoglycemia Protocol Albumin Human 50 mls @ 999 mls/hr 09/09/20 06:54 Albutein IVPB 10/09/20 06:55 Q10M PRN HYPOTENSION Insulin Aspart 4 - 8 units 09/09/20 08:00 09/10/20 16:09 Insulin Aspart (*Bkc) 100 Units/Ml SUB-Q Not Given TIDWM RENEA Protocol Insulin Detemir 25 units 09/09/20 09:00 09/10/20 08:17 Insulin Detemir 100 Units/Ml SUB-Q 10/09/20 09:01 25 units DAILY RENEA Administration Midodrine 5 mg 09/10/20 09:00 09/10/20 08:23 Midodrine Hcl 2.5 Mg Tablet BY MOUTH 5 mg MoWeFr RENEA Administration Mor
[2020-09-10] MEDS: SEVELAMER CARBONATE 800 MG TABLET 3200 MG PO (17:49)
[2020-09-10 17:53] LABS: Glucose Point of Care 138 (65-105)
[2020-09-10 20:49] LABS: Potassium 4.7 mmol/L (3.4-5.0)
[2020-09-10 21:49] LABS: Glucose Point of Care 161 (65-105)
[2020-09-11] VITALS (20 sets, daily range): BP systolic 123–173; BP diastolic 57–106; PULSE 70–107; RESP 13–20; TEMP 36.2–36.9; O2SAT 93–100
[2020-09-11] MEDS: MORPHINE SULFATE (*CRX) 4 MG/ML INJ IV PUSH (05:10)
[2020-09-11 05:18] LABS: Glucose Point of Care 155 (65-105)
[2020-09-11 06:42] LABS: Anion Gap 10 mmol/L (8-16); Blood Urea Nitrogen 37 mg/dL (7-17); Calcium 8.6 mg/dL (8.4-10.2); Carbon Dioxide 29 mmol/L (22-30); Chloride 95 mmol/L (98-107); Estimated CRCL calculation 12 ml/min; Estimated Glomerular Filt Rate 8; Glucose 136 mg/dL (65-105); Potassium 4.6 mmol/L (3.4-5.0); Sodium 134 mmol/L (137-145)
[2020-09-11] MEDS: SODIUM CHLORIDE 0.9% IV 500 ML 30 ML IV CONT (10:20)
--- NOTE | 2020-09-11 10:49 | PC.NURSE ---
pt to surgery
[2020-09-11 11:12] LABS: Glucose Point of Care 129 (65-105)
--- NOTE | 2020-09-11 11:21 | WPDANESEPPF ---
Anes - Initial Pre Proc Eval Procedure: Operation Date: 09/11/20 13:00 Proposed Procedures p Open Reduction Internal Fixation Right Hip - Amaury Yang MD Date/Time: 09/11/20 11:21 Surgeon: Мария Robledo MD Pre Op Diagnosis: right hip fracture, hyperkalemia Patient Data Age: 59 Gender: F Height: 1.6 m Weight: 109.2 kg Last Vital Signs Temp 36.4 C L 09/11/20 06:00 Pulse 80 09/11/20 08:00 Resp 20 09/11/20 06:00 BP 140/72 09/11/20 06:00 Pulse Ox 96 09/11/20 06:00 Allergies Allergy/AdvReac Type Severity Reaction Status Date / Time amoxicillin Allergy Swelling Verified 09/08/20 14:40 iodine Allergy Other Verified 09/08/20 14:40 Home Medications Medication Instructions Recorded Confirmed Type sevelamer carbonate [Renvela] 800 mg PO TID 05/21/19 09/08/20 History vitamin B complex-vitamin C-folic 1 tablet PO DAILY 08/14/19 09/08/20 History acid 0.8 mg tablet insulin aspart U-100 100 unit/mL See Rx Instructions .ROUTE 07/31/20 09/08/20 Rx subcutaneous solution .COMPLEX #30 ml flash glucose sensor #6 ea 08/18/20 09/08/20 Rx insulin syringe-needle U-100 0.3 See Rx Instructions .ROUTE 08/28/20 09/08/20 Rx mL 31 gauge x 15/64 .COMPLEX #100 syringe insulin detemir U-100 [Levemir 25 unit SUB-Q DAILY 09/08/20 09/08/20 History U-100 Insulin] midodrine See Rx Instructions .ROUTE .COMPLEX 09/08/20 09/08/20 History Laboratory Tests 09/10/20 09/10/20 09/10/20 17:48 20:31 21:47 Sodium Potassium 4.7 mmol/L mmol/L (3.4-5.0) Chloride Carbon Dioxide Anion Gap BUN Creatinine Estim Creat Clear Calc Estimated GFR Glucose POC Capillary Glucose 138 mg/dl H mg/dl 161 mg/dl H mg/dl (65-105) (65-105) Calcium 09/11/20 09/11/20 09/11/20 04:39 05:49 11:10 Sodium 134 mmol/L L mmol/L (137-145) Potassium 4.6 mmol/L mmol/L (3.4-5.0) Chloride 95 mmol/L L mmol/L (98-107) Carbon Dioxide 29 mmol/L mmol/L (22-30) Anion Gap 10 mmol/L mmol/L (8-16) BUN 37 mg/dL H D mg/dL (7-17) Creatinine 5.70 mg/dL H mg/dL (0.7-1.0) Estim Creat Clear Calc 12 ml/min ml/min Estimated GFR 8 L (59 - ) Glucose 136 mg/dL H mg/dL (65-105) POC Capillary Glucose 155 mg/dl H mg/dl 129 mg/dl H mg/dl (65-105) (65-105) Calcium 8.6 mg/dL mg/dL (8.4-10.2) Patient hx anesthesia problems: none Family hx anesthesia problems: none [facility] Past Medical History Medical History (Updated 09/10/20 @ 11:48 by Valencia Zambrano MD) Anemia in chronic kidney disease Basicervical fracture of neck of right femur CHF (congestive heart failure) EF 35% End-stage renal disease on hemodialysis On hemodialysis since June 2017; dialysis Tuesday followed by Dr. Kaur Iron deficiency anemia Kidney stones Type 2 diabetes mellitus 07/31/2020 hemoglobin A1c 7.1 Surgical History Surgical History AV fistula Left upper arm AV fistula created 2017 H/O arthroscopy of right knee History of bilateral carpal tunnel release History of left knee replacement August 2018 History of lumbar surgery Spinal stenosis History of total right knee replacement May 2018 Family History Family History Father , in his 40s of premature coronary artery disease Cerebrovascular accident Heart disease Mother Diabetes mellitus Bone cancer Cervical cancer Sibling , of heart disease in his 50s Hypertension Heart disease Diabetes mellitus Social History Social History Social History: 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
--- NOTE | 2020-09-11 11:33 | WPDHPUPDATE1 ---
History and Physical Update Update Date/Time: 09/11/20 11:33 History and Physical has been reviewed, including an updated exam of the patient. There are NO changes in the patient's condition. Risks, benefits, and alternatives have been discussed and questions answered. Patient agrees to proceed with procedure.
[2020-09-11] MEDS: CLINDAMYCIN 900 MG/D5W 50 ML 900 MG/50 ML PIGGYBACK 50 MG IVPB ×2 (12:03→21:23)
[2020-09-11 13:38] LABS: Hepatitis B Core Ab Total Nonreactive (Nonreactive)
[2020-09-11 14:56] LABS: Glucose Point of Care 146 (65-105)
--- NOTE | 2020-09-11 14:59 | P.OP_ITS ---
Procedure Note - Detailed Date of procedure: 09/11/20 Pre-op diagnosis: right hip fracture, hyperkalemia Right basicervical femoral neck fracture Post-op diagnosis: same Procedure performed: ORIF right femoral neck fracture with fluoroscopic assistance Description of procedure: The patient was identified and the proper site identified. She was taken back to the operating room and after general anesthetic induction and intubation, she was transferred over to the fracture table position her supine taking care to properly pad position her torso and extremities. Using a reduction maneuver, the right femoral neck fracture was able to be reduced virtually anatomically. The right hip and thigh was prepped and draped in usual sterile fashion. A longitudinal incision was made laterally over the proximal femur. Subcutaneous tissue sharply dissected down to the ITB band was divided line with incision. The fascia of the vastus lateralis was also divided allowing for exposure of the proximal femur laterally. Two guide pins for the 7.3 cannulated screw set were placed into the femoral neck and head through the greater trochanter for anti rotation purposes. A guide pin for the DHS was then placed with the 135 degree guide under fluoroscopic control into the neck and head of the femur. The Reamer was used to ream to the appropriate depth and then a 90 mm lag screw was placed. The 130 degree two hole plate was then seated over the shaft of the screw and affixed to the proximal femur with 24.5 mm cortical screws. One of the guide pins was removed from the femoral head. Over the other one a 7.3 mm cannulated screw was placed verifying its position fluoroscopically. Guide pins were removed. The wound was irrigated with sterile antibiotic solution. The vastus fascia was reapproximated with 0 Vicryl suture. The ITB band was reapproximated with a looped PDS as was the deeper layers of the subcu. Skin was reapproximated with two of strata fix and carlton. Sterile dressing was applied. She tolerated the procedure well. She was awakened, extubated and taken recovery area in stable condition. There were no known intraoperative complications. Estimated blood loss was 100 mL. She received perioperative antibiotics. Anesthesia: GETA Surgeon: Amaury Yang MD Retail Shift Supervisor: Amador Otto Estimated blood loss (mL): 100 Drains: No Packing: No Pathology: none sent Complications: No immediate complications Condition: stable Disposition: PACU
[2020-09-11] MEDS: fentaNYL CITRATE INJ (*CRX) 100 MCG/2 ML VIAL 25 MCG IV PUSH ×4 (15:05→15:48)
--- NOTE | 2020-09-11 15:13 | PM.IMPN ---
Progress Note: A&P Assessment and Plan (1) Acute hyperkalemia: Code(s): E87.5 - Hyperkalemia Status: Acute Assessment and Plan: Patient repeat potassium is high, patient is going to get dialysis today and hopefully after dialysis patient electrolytes were normalized. (2) End-stage renal disease on hemodialysis: Code(s): N18.6 - End stage renal disease; Z99.2 - Dependence on renal dialysis Status: Acute Assessment and Plan: Nephrology consult in dialysis schedule. (3) Closed fracture of right hip: Qualifiers: Encounter type: initial encounter Qualified Code(s): S72.001A - Fracture of unspecified part of neck of right femur, initial encounter for closed fracture Code(s): S72.001A - Fracture of unspecified part of neck of right femur, initial encounter for closed fracture Status: Deleted Assessment and Plan: Orthopedic consult noted. Hemoglobin stable. Surgery scheduled for today. 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 Additional Plan Patient who presented to the ER with knee pain and found to have a right femoral neck fracture. Patient is receiving pain medications with good relief in symptoms. Patient denies chest pain shortness of breath or palpitations. She does have end-stage renal disease on hemodialysis and is hyperkalemic. Her hyperkalemia has improved but not resolved since administration of bicarb, calcium, insulin and dextrose in the ER. The patient will receive hemodialysis in a.m.. Once her electrolyte abnormalities have stabilized the patient will be medically stable for surgical repair. Patient's electrolytes and glucoses will need to be monitored closely in the postoperative period. Patient has been resume the home Levemir and has been placed on sliding scale insulin. This document was completed by using [employer] Direct speech recognition software, therefore, machine stuffer variances may occur. Despite proof reading and review of records errors may persist. Subjective Date/time seen: 09/11/20 15:13 Interval history: Patient was seen during the rounds today. Patient today pain is under control. Patient denies any shortness of breath or chest pain. No new complaint. Mood stable. Review of Systems Review of Systems: All systems reviewed & are unremarkable except as noted in HPI and below (the history and physical exam.) Exam Narrative: Exam Narrative: PHYSICAL EXAM: WEIGHT 100 kg BMI 39.1 General: No acute distress, appears older than stated age, obese HEENT: Mucous membranes are dry, no oral pharyngeal erythema, good dentition, pupils are equal and reactive, head is normocephalic atraumatic, large neck circumference Respiratory: Clear to auscultation bilaterally, no increased work of Cardiovascular: Regular rate, regular rate, regular rhythm, no murmurs Gastrointestinal:, distended, nontender, positive bowel sounds Skin: Generalized pallor, non jaundice Musculoskeletal: No clubbing, cyanosis or edema, pain in the right knee and hip with any movement of the legs, leg is not rotated or shortened Neurological: Alert and oriented, speech is clear, no facial asymmetry Psychiatric: Appropriate mood and affect, cooperative : Deferred Hematologic/lymphatic: No petechiae, no bruising, no lymphadenopathy Objective Data Vital Signs Vital Signs: Vital Signs - 24 hr 09/10/20 15:15 09/10/20 15:30 09/10/20 15:45 Temperature Pulse Rate 101 H 98 66 Respiratory Rate Blood Pressure 113/51 L 110/58 L 127/53 L Pulse Oximetry 09/10/20 16:00 09/10/20 16:15 09/10/20 16:30
--- NOTE | 2020-09-11 16:41 | PC.NURSE ---
Pt returned from Surgery
[2020-09-11] MEDS: DOCUSATE SODIUM 100 MG CAPSULE PO (16:57)
[2020-09-11] MEDS: HYDROcodone/acetaminophen (*CRX) 7.5-325 MG TABLET 1 TAB PO ×2 (16:57→21:17)
[2020-09-11] MEDS: SEVELAMER CARBONATE 800 MG TABLET 3200 MG PO (16:58)
[2020-09-11] MEDS: VITAMIN B CMPLX/VIT C/FOLIC AC 1 CAPSULE 1 CAP PO (17:00)
[2020-09-11 17:15] LABS: Glucose Point of Care 156 (65-105)
[2020-09-11] MEDS: HEPARIN SODIUM 5,000 UNITS/ML VIAL 5000 UNITS SUB-Q (21:17)
[2020-09-11 22:23] LABS: Glucose Point of Care 186 (65-105)
[2020-09-12] VITALS (25 sets, daily range): BP systolic 97–139; BP diastolic 47–64; PULSE 84–98; RESP 16–20; TEMP 36–37; O2SAT 91–98; BMI 10.0
[2020-09-12] MEDS: MORPHINE SULFATE (*CRX) 4 MG/ML INJ IV PUSH (03:23)
[2020-09-12] MEDS: CLINDAMYCIN 900 MG/D5W 50 ML 900 MG/50 ML PIGGYBACK 50 MG IVPB (03:23)
[2020-09-12 06:08] LABS: Basophils Percent Auto 0.2 % (0.2-1.2); Eosinophils Absolute Auto 0.3 K/mm3 (0-0.3); Eosinophils Percent Auto 2.9 % (0-4.4); Hemoglobin 10.6 g/dL (12.0-15.0); Immature Granulocyte Absolute 0.03 K/mm3 (0.00-0.031); Immature Granulocyte Percent A 0.4 % (0-0.5); Lymphocytes Absolute Auto 0.88 K/mm3 (0.9-3.2); Lymphocytes Percent Auto 10.4 % (18.3-44.2); Mean Corpuscular HGB Conc 31.2 g/dl (32-36); Mean Corpuscular Hemoglobin 29.4 pg (26-34); Mean Corpuscular Volume 94.2 fl (80-100); Mean Platelet Volume 9.8 fl (7.4-10.4); Monocytes Absolute Auto 0.8 K/mm3 (0.1-0.6); Monocytes Percent Auto 9.1 % (2.6-8.5); Neutrophils Absolute Auto 6.5 K/mm3 (1.3-6.7); Platelet Count Result 157 k/mm3 (150-375); Red Blood Count 3.61 M/mm3 (4.2-5.4); Red Cell Distribution Width 14.8 % (11.5-14.5); White Blood Count 8.5 K/mm3 (4.5-10.0)
[2020-09-12 06:38] LABS: Anion Gap 15 mmol/L (8-16); Blood Urea Nitrogen 60 mg/dL (7-17); Calcium 8.4 mg/dL (8.4-10.2); Carbon Dioxide 27 mmol/L (22-30); Chloride 92 mmol/L (98-107); Estimated CRCL calculation 8 ml/min; Estimated Glomerular Filt Rate 5; Glucose 173 mg/dL (65-105); Potassium 4.9 mmol/L (3.4-5.0); Sodium 134 mmol/L (137-145)
[2020-09-12 07:54] LABS: Glucose Point of Care 170 (65-105)
[2020-09-12] MEDS: ACETAMINOPHEN 325 MG TABLET 650 MG PO ×2 (08:36→14:44)
--- NOTE | 2020-09-12 09:06 | PM.IMPN ---
Progress Note: A&P Assessment and Plan (1) Acute hyperkalemia: Code(s): E87.5 - Hyperkalemia Status: Acute Assessment and Plan: Resolved, will monitor closely (2) End-stage renal disease on hemodialysis: Code(s): N18.6 - End stage renal disease; Z99.2 - Dependence on renal dialysis Status: Acute Assessment and Plan: Continue dialysis as scheduled. (3) Closed fracture of right hip: Qualifiers: Encounter type: initial encounter Qualified Code(s): S72.001A - Fracture of unspecified part of neck of right femur, initial encounter for closed fracture Code(s): S72.001A - Fracture of unspecified part of neck of right femur, initial encounter for closed fracture Status: Deleted Assessment and Plan: Orthopedic consult noted. Hemoglobin stable. S status post surgical repair of the femoral neck. 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 Additional Plan Will start physical therapy and arranged rehab evaluation. Monitor electrolytes and hemoglobin. This document was completed by using [employer] Direct speech recognition software, therefore, occupational hygienist variances may occur. Despite proof reading and review of records errors may persist. Subjective Date/time seen: 09/12/20 09:06 Interval history: Patient was seen during the rounds today. Had femoral neck surgery done yesterday. Patient today pain is under control. Patient denies any shortness of breath or chest pain. No new complaint. Mood stable. Review of Systems Review of Systems: All systems reviewed & are unremarkable except as noted in HPI and below (the history and physical exam.) Exam Narrative: Exam Narrative: PHYSICAL EXAM: WEIGHT 100 kg BMI 39.1 General: No acute distress, appears older than stated age, obese HEENT: Mucous membranes are dry, no oral pharyngeal erythema, good dentition, pupils are equal and reactive, head is normocephalic atraumatic, large neck circumference Respiratory: Clear to auscultation bilaterally, no increased work of Cardiovascular: Regular rate, regular rate, regular rhythm, no murmurs Gastrointestinal:, distended, nontender, positive bowel sounds Skin: Generalized pallor, non jaundice Musculoskeletal: No clubbing, cyanosis or edema, pain in the right knee. Status post femoral neck surgery. Neurological: Alert and oriented, speech is clear, no facial asymmetry Psychiatric: Appropriate mood and affect, cooperative : Deferred Hematologic/lymphatic: No petechiae, no bruising, no lymphadenopathy Objective Data Vital Signs Vital Signs: Vital Signs - 24 hr 09/11/20 10:55 09/11/20 14:43 09/11/20 14:55 Temperature 36.5 C 36.4 C L Pulse Rate 87 91 93 Respiratory Rate 20 16 16 Blood Pressure 123/57 L 152/81 H 152/81 H Pulse Oximetry 96 96 99 09/11/20 15:10 09/11/20 15:25 09/11/20 15:40 Temperature Pulse Rate 94 92 92 Respiratory Rate 15 17 19 Blood Pressure 157/76 H 173/106 H 170/81 H Pulse Oximetry 98 98 99 09/11/20 15:55 09/11/20 16:00 09/11/20 16:10 Temperature Pulse Rate 94 102 H 90 Respiratory Rate 15 13 Blood Pressure 154/74 H 141/90 H Pulse Oximetry 99 93 09/11/20 16:25 09/11/20 16:45 09/11/20 17:00 Temperature 36.9 C Pulse Rate 93 91 81 Respiratory Rate 14 16 16 Blood Pressure 156/74 H 146/71 H 141/80 H Pulse Oximetry 98 95 96 09/11/20 17:30 09/11/20 18:30 09/11/20 20:00 Temperature 36.9 C 36.8 C Pulse Rate 78 70 88 Respiratory Rate 16 16 20 Blood Pressure 138/78 135/71 138/75 Pulse Oximetry 97 99 100 09/11/20 22:30 09/12/20 00:00 09/12/20 02:30 T
--- NOTE | 2020-09-12 10:14 | PM.PNNEP ---
Progress Note: A&P Assessment and Plan (1) End stage renal disease: Code(s): N18.6 - End stage renal disease Status: Chronic Assessment and Plan: HD today and continue her M/W/ dialysis schedule follow electrolytes, volume status, and clearance (2) Acute hyperkalemia: Code(s): E87.5 - Hyperkalemia Status: Acute Assessment and Plan: doing better dietary indiscretion?? follow trend (3) Basicervical fracture of neck of right femur: Qualifiers: Encounter type: initial encounter Fracture alignment: displaced Fracture type: closed Qualified Code(s): S72.041A - Displaced fracture of base of neck of right femur, initial encounter for closed fracture Code(s): S72.041A - Displaced fracture of base of neck of right femur, initial encounter for closed fracture Status: Acute Assessment and Plan: as noted by imaging studies on admission s/p ORIF of right femoral neck fracture by Orthopedics local wound care pain control PT/OT as per Orthopedics likely to need SNF on discharge (4) Elevated blood pressure reading: Code(s): R03.0 - Elevated blood-pressure reading, without diagnosis of hypertension Status: Acute Assessment and Plan: BP is usually well controlled without medications uses midodrine with dialysis treatments suspect elevated more so due to pain issues from fracture (5) Diabetes: Code(s): E11.9 - Type 2 diabetes mellitus without complications Status: Acute Assessment and Plan: follow accuchecks on SSI and Detemir Will continue to follow. Subjective Date/time seen: 09/12/20 10:14 Unable to see patient yesterday as was in OR for her surgical procedure; tolerating dialysis at the time of my visit (seen on HD at ~ 10:00AM); pain control appears tolerable and did well with surgery yesterday; no other acute issues/events overnight or earlier this AM. Exam Narrative: Exam Narrative: General: WD/WN female in NAD Heart: normal S1 and S2; no rub Lungs: clear to auscultation Abdomen: soft, nontender, nondistended, positive bowel sounds Extremities: no cyanosis or clubbing; trace edema Skin: warm and intact Objective Data Vital Signs Vital Signs: Vital Signs Temp Pulse Resp BP Pulse Ox 09/12/20 10:00 36.6 C 87 18 102/56 L 95 09/12/20 09:45 88 122/61 09/12/20 09:30 86 122/61 09/12/20 09:15 85 100/60 09/12/20 09:08 37.0 C 90 16 127/63 09/12/20 05:58 36.2 C L 91 20 119/62 91 09/12/20 04:00 36.2 C L 93 20 119/62 91 09/12/20 02:30 36.2 C L 88 20 139/63 97 09/12/20 00:00 88 09/11/20 22:30 36.2 C L 88 20 139/63 97 09/11/20 20:00 36.8 C 88 20 138/75 100 09/11/20 18:30 36.9 C 70 16 135/71 99 09/11/20 17:30 78 16 138/78 97 09/11/20 17:00 81 16 141/80 H 96 09/11/20 16:45 36.9 C 91 16 146/71 H 95 09/11/20 16:25 93 14 156/74 H 98 09/11/20 16:10 90 13 141/90 H 93 09/11/20 16:00 102 H 09/11/20 15:55 94 15 154/74 H 99 09/11/20 15:40 92 19 170/81 H 99 09/11/20 15:25 92 17 173/106 H 98 09/11/20 15:10 94 15 157/76 H 98 09/11/20 14:55 93 16 152/81 H 99 09/11/20 14:43 36.4 C L 91 16 152/81 H 96 09/11/20 10:55 36.5 C 87 20 123/57 L 96 Intake/Output Intake/Output: Intake & Output 09/09/20 09/10/20 09/11/20 09/12/20 23:59 23:59 23:59 23:59 Intake Total 480 980 760 500 Output Total 2500 1839 -[id number] 500 Meds/Results Medications: Active Medications Generic Name Dose Route Start Last Admin Trade Name Freq PRN Reason Stop Dose Admin Acetaminophen 650 mg 09/10/20 07:51 09/12/20 08:36 Acetaminophen 325 Mg Tablet PO 650 mg Q6H PRN Administration Mild Pain (1-3) or Fever Hydrocodone Bitart/Acetaminophen 1 tab 09/11/20 16:45 09/11/20 21:17 Hydrocodone/Acetaminophen (*Crx) 7.5-325 Mg Tablet PO 1 tab Q
--- NOTE | 2020-09-12 10:55 | WPDANESPN ---
Anes - Prog Note Post-Op Date/Time: 09/12/20 10:55 Cardiovascular status: normal Respiratory status: normal Airway patency: baseline Mental status: baseline Post-Op hydration status: normal (patient on MWF dialysis. ) Vital Signs: Last Vital Signs Temp 36.6 C 09/12/20 10:00 Pulse 89 09/12/20 10:45 Resp 18 09/12/20 10:00 BP 102/56 L 09/12/20 10:45 Pulse Ox 95 09/12/20 10:00 Pain Score (VAS): 0 I/O: Intake & Output 09/11/20 09/12/20 09/12/20 23:59 07:59 15:59 Intake Total 460 500 Balance 460 500 Laboratory Tests 09/12/20 05:47 09/12/20 05:47 09/09/20 09/11/20 09/11/20 08:26 11:10 14:55 WBC RBC Hgb Hct MCV MCH MCHC RDW Plt Count MPV Immature Gran % (Auto) Neut % (Auto) Lymph % (Auto) [place] % (Auto) Eos % (Auto) Baso % (Auto) Lymph # (Auto) [place] # (Auto) Eos # (Auto) Baso # (Auto) Abs Immat Gran (auto) Absolute Neuts (auto) Absolute Nucleated RBC Nucleated RBC % Sodium Potassium Chloride Carbon Dioxide Anion Gap BUN Creatinine Estim Creat Clear Calc Estimated GFR Glucose POC Capillary Glucose 129 H 146 H Calcium Hep B Core Total Ab Nonreactive SARS-CoV-2 RNA (RT-PCR) 09/11/20 09/11/20 09/12/20 17:03 21:37 04:25 WBC RBC Hgb Hct MCV MCH MCHC RDW Plt Count MPV Immature Gran % (Auto) Neut % (Auto) Lymph % (Auto) [place] % (Auto) Eos % (Auto) Baso % (Auto) Lymph # (Auto) [place] # (Auto) Eos # (Auto) Baso # (Auto) Abs Immat Gran (auto) Absolute Neuts (auto) Absolute Nucleated RBC Nucleated RBC % Sodium Potassium Chloride Carbon Dioxide Anion Gap BUN Creatinine Estim Creat Clear Calc Estimated GFR Glucose POC Capillary Glucose 156 H 186 H Calcium Hep B Core Total Ab SARS-CoV-2 RNA (RT-PCR) Pending 09/12/20 09/12/20 09/12/20 05:47 05:47 07:32 WBC 8.5 RBC 3.61 L Hgb 10.6 L Hct 34.0 L MCV 94.2 MCH 29.4 MCHC 31.2 L RDW 14.8 H Plt Count 157 MPV 9.8 Immature Gran % (Auto) 0.4 Neut % (Auto) 77.0 H Lymph % (Auto) 10.4 L [place] % (Auto) 9.1 H Eos % (Auto) 2.9 Baso % (Auto) 0.2 Lymph # (Auto) 0.88 L [place] # (Auto) 0.8 H Eos # (Auto) 0.3 Baso # (Auto) 0.0 Abs Immat Gran (auto) 0.03 Absolute Neuts (auto) 6.5 Absolute Nucleated RBC 0.0 Nucleated RBC % 0.0 Sodium 134 L Potassium 4.9 Chloride 92 L Carbon Dioxide 27 Anion Gap 15 BUN 60 H D Creatinine 8.50 H Estim Creat Clear Calc 8 Estimated GFR 5 L Glucose 173 H POC Capillary Glucose 170 H Calcium 8.4 Hep B Core Total Ab SARS-CoV-2 RNA (RT-PCR) Post-procedural complaints: none Patient Feedback: Patient satisfied with anesthetic care.
[2020-09-12] MEDS: EPOETIN ALFA-EPBX 10,000 UNITS/ML VIAL 10000 UNITS IV PUSH (11:09)
[2020-09-12 11:54] LABS: Glucose Point of Care 135 (65-105)
[2020-09-12] MEDS: HEPARIN SODIUM 5,000 UNITS/ML VIAL 5000 UNITS SUB-Q ×2 (13:44→21:05)
[2020-09-12] MEDS: SEVELAMER CARBONATE 800 MG TABLET 3200 MG PO (13:44)
[2020-09-12] MEDS: DOCUSATE SODIUM 100 MG CAPSULE PO ×2 (13:44→18:01)
--- NOTE | 2020-09-12 13:48 | PCPTNOTE ---
Attempted therapy session at 13:30, Pt just returned from dialysis and getting bath. Will attempt again.
[2020-09-12] MEDS: VITAMIN B CMPLX/VIT C/FOLIC AC 1 CAPSULE 1 CAP PO (14:41)
--- NOTE | 2020-09-12 15:00 | PM.PNORT ---
Progress Note: A&P Assessment and Plan (1) Basicervical fracture of neck of right femur: Qualifiers: Encounter type: initial encounter Fracture type: closed Fracture alignment: displaced Qualified Code(s): S72.041A - Displaced fracture of base of neck of right femur, initial encounter for closed fracture Code(s): S72.041A - Displaced fracture of base of neck of right femur, initial encounter for closed fracture Status: Acute Assessment and Plan: 59-year-old female postop day one ORIF right femoral neck fracture. I discussed surgery with her in detail. I emphasized again the importance of her compliance in these first couple of months in order to give this the best possible chance to heal. Her therapy has begun. Going to be working on placement this point. Following. Subjective Subjective Date/Time Seen: 09/12/20 15:00 Post Op day: 1 Principal diagnosis: Status post ORIF right femoral neck fracture Interval history: 59-year-old female postop day one ORIF right femoral neck fracture. Uneventful overnight. Tolerating therapy. Exam Narrative: Exam Narrative: Alert and oriented. Answers questions appropriately. Purposeful movements upper and lower extremities. Const: General: cooperative, comfortable and no acute distress Nutritional Appearance: obese morbidly obese (BMI 42.6) Extrem: Other: Right hip incision dressing dry. Very little swelling no erythema right thigh. Grossly neurovascular status intact right lower extremity however exam limited secondary to her discomfort. Objective Data Vital Signs Vital Signs: Vital Signs - 24 hr 09/11/20 15:10 09/11/20 15:25 09/11/20 15:40 Temperature Pulse Rate 94 92 92 Respiratory Rate 15 17 19 Blood Pressure 157/76 H 173/106 H 170/81 H Pulse Oximetry 98 98 99 09/11/20 15:55 09/11/20 16:00 09/11/20 16:10 Temperature Pulse Rate 94 102 H 90 Respiratory Rate 15 13 Blood Pressure 154/74 H 141/90 H Pulse Oximetry 99 93 09/11/20 16:25 09/11/20 16:45 09/11/20 17:00 Temperature 98.5 F Pulse Rate 93 91 81 Respiratory Rate 14 16 16 Blood Pressure 156/74 H 146/71 H 141/80 H Pulse Oximetry 98 95 96 09/11/20 17:30 09/11/20 18:30 09/11/20 20:00 Temperature 98.5 F 98.2 F Pulse Rate 78 70 88 Respiratory Rate 16 16 20 Blood Pressure 138/78 135/71 138/75 Pulse Oximetry 97 99 100 09/11/20 22:30 09/12/20 00:00 09/12/20 02:30 Temperature 97.2 F L 97.2 F L Pulse Rate 88 88 88 Respiratory Rate 20 20 Blood Pressure 139/63 139/63 Pulse Oximetry 97 97 09/12/20 04:00 09/12/20 05:58 09/12/20 08:00 Temperature 97.1 F L 97.1 F L Pulse Rate 93 91 91 Respiratory Rate 20 20 Blood Pressure 119/62 119/62 Pulse Oximetry 91 91 09/12/20 09:08 09/12/20 09:15 09/12/20 09:30 Temperature 98.6 F Pulse Rate 90 85 86 Respiratory Rate 16 Blood Pressure 127/63 100/60 122/61 Pulse Oximetry 09/12/20 09:45 09/12/20 10:00 09/12/20 10:15 Temperature 97.8 F Pulse Rate 88 87 87 Respiratory Rate 18 Blood Pressure 122/61 102/56 L 104/53 L Pulse Oximetry 95 09/12/20 10:30 09/12/20 10:45 09/12/20 11:05 Temperature Pulse Rate 87 89 92 Respiratory Rate Blood Pressure 101/47 L 102/56 L 98/57 L Pulse Oximetry 09/12/20 11:15 09/12/20 11:30 09/12/20 11:45 Temperature Pulse Rate 90 90 92 Respiratory Rate Blood Pressure 105/56 L 105/60 97/57 L Pulse Oximetry 09/12/20 12:00 09/12/20 12:15 09/12/20 12:45 Temperature Pulse Rate 94 94 98 Respiratory Rate Blood Pressure 105/56 L 101/54 L 102/55 L Pulse Oximetry 09/12/20 13:01 09/12/20 13:20 Temperature 97.9 F Pulse Rate 96 94 Respiratory Rate 16 Blood Pressure 115/57 L 107/57 L Pulse Oximetry Intake/Output Intake/Output: Intake & Output 09/09/20 09/10/20 09/11/20 09/12/20 23:59 23:59 23:59 23:59 Intake Total 480 / 480 980 / 980 760 / 760 500 / 500 Output Total 2500 / 2500 1839 / 1839 2400 / 2400 Balance
[2020-09-12 17:17] LABS: Glucose Point of Care 247 (65-105)
[2020-09-12] MEDS: INSULIN ASPART (*BKC) 100 UNITS/ML SUB-Q (18:02)
[2020-09-12 22:51] LABS: SARS-CoV-2 RNA PCR Negative
[2020-09-13] MEDS: ACETAMINOPHEN 325 MG TABLET 650 MG PO ×2 (00:10→08:23)
[2020-09-13] MEDS: SEVELAMER CARBONATE 800 MG TABLET 3200 MG PO ×2 (08:21→16:59)
[2020-09-13] MEDS: HEPARIN SODIUM 5,000 UNITS/ML VIAL 5000 UNITS SUB-Q ×2 (08:21→20:26)
[2020-09-13] MEDS: VITAMIN B CMPLX/VIT C/FOLIC AC 1 CAPSULE 1 CAP PO (08:21)
[2020-09-13] MEDS: DOCUSATE SODIUM 100 MG CAPSULE PO ×2 (08:21→16:59)
[2020-09-13] MEDS: INSULIN ASPART (*BKC) 100 UNITS/ML SUB-Q ×2 (08:26→12:33)
[2020-09-13] MEDS: INSULIN DETEMIR 100 UNITS/ML 25 UNITS SUB-Q (08:27)
[2020-09-13 08:28] LABS: Glucose Point of Care 234 (65-105)
[2020-09-13 08:47] LABS: Basophils Percent Auto 0.4 % (0.2-1.2); Eosinophils Absolute Auto 0.2 K/mm3 (0-0.3); Eosinophils Percent Auto 2.2 % (0-4.4); Hematocrit 34.4 % (37.0-47.0); Hemoglobin 10.8 g/dL (12.0-15.0); Immature Granulocyte Absolute 0.05 K/mm3 (0.00-0.031); Immature Granulocyte Percent A 0.5 % (0-0.5); Lymphocytes Absolute Auto 1.01 K/mm3 (0.9-3.2); Lymphocytes Percent Auto 11.1 % (18.3-44.2); Mean Corpuscular HGB Conc 31.4 g/dl (32-36); Mean Corpuscular Hemoglobin 29.3 pg (26-34); Mean Corpuscular Volume 93.5 fl (80-100); Mean Platelet Volume 10.1 fl (7.4-10.4); Monocytes Absolute Auto 0.9 K/mm3 (0.1-0.6); Monocytes Percent Auto 9.4 % (2.6-8.5); Neutrophils Percent Auto 76.4 % (45.5-73.1); Platelet Count Result 200 k/mm3 (150-375); Red Blood Count 3.68 M/mm3 (4.2-5.4); Red Cell Distribution Width 14.9 % (11.5-14.5); White Blood Count 9.1 K/mm3 (4.5-10.0)
[2020-09-13 08:54] LABS: Potassium 4.1 mmol/L (3.4-5.0)
[2020-09-13 08:59] LABS: Albumin Level 3.7 g/dL (3.5-5.1); Anion Gap 17 mmol/L (8-16); Blood Urea Nitrogen 48 mg/dL (7-17); Calcium 8.9 mg/dL (8.4-10.2); Carbon Dioxide 24 mmol/L (22-30); Chloride 92 mmol/L (98-107); Estimated CRCL calculation 10 ml/min; Estimated Glomerular Filt Rate 6; Glucose 229 mg/dL (65-105); Magnesium 2.4 mg/dL (1.6-2.3); Phosphorus 6.7 mg/dL (2.5-4.5); Sodium 133 mmol/L (137-145)
[2020-09-13 09:10] VITALS: BMI 10.0
--- NOTE | 2020-09-13 11:28 | PM.IMPN ---
Progress Note: A&P Assessment and Plan (1) Closed fracture of right hip: Qualifiers: Encounter type: initial encounter Qualified Code(s): S72.001A - Fracture of unspecified part of neck of right femur, initial encounter for closed fracture Code(s): S72.001A - Fracture of unspecified part of neck of right femur, initial encounter for closed fracture Status: Deleted Assessment and Plan: POD [address] OR[address] hip per Dr[address] Yang. Doing okay with pain, however, not doing much with therapy; only able to get to side of bed today. Dr. Yang following and appreciate recommendations. Appears patient will be going to [facility] for rehab once ready for discharge. Unlikely d/c today given her minimal improvement with therapy Encourage ambulation/transfers Hopefully discharge in 1-2 days pending PT/OT improvement Post op care, pain management, PT/OT, DVT ppx per Orthopedic Surgery Monitor (2) Acute hyperkalemia: Code(s): E87.5 - Hyperkalemia Status: Acute Assessment and Plan: Appears to have resolved. On MWF HD. Nephrology consulted and appreciate recommendations. Monitor daily Await further rec from Nephrology (3) End-stage renal disease on hemodialysis: Code(s): N18.6 - End stage renal disease; Z99.2 - Dependence on renal dialysis Status: Acute Assessment and Plan: Cr 6.60 today. On MWF HD. 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 Patient wishes to be placed on levemir at night as this is her normal regimen Switch to home levemir 28 u QHS tomorrow night. Will do one dose of levemir 14 u tonight Accuchecks ACHS, hypoglycemia protocol, correctional insulin, diabetic diet Subjective Date/time seen: 09/13/20 11:28 Interval history: Patient is a 59 yo F with history of ESRD on hemodialysis Tuesday/Tuesday/Tuesday, ACD, CHF and type 2 diabetes mellitus who is seen in follow up for right hip fracture POD 2 ORIF and hyperkalemia. Patient states she is doing okay today. Pain is somewhat reasonable but worse with movement. Only able to sit on side of bed for therapy today; encouraged possibly transferring to chair today or tomorrow. She is concerned about her insulin regimen as she notes she takes levemir 28 u at night and Novolog 6-8 u with meals. She also feels constipated and requests additional laxatives if possible. No other complaints. Denies f/c/s,headaches, dizziness, lightheadedness, cp/palpitations, sob/cough, abd pain, calf pain/swelling. Review of Systems Review of Systems: All systems reviewed & are unremarkable except as noted in HPI and below Exam Narrative: Exam Narrative: General: Patient resting supine in bed in no acute distress. HEENT: Normocephalic, EOMI, oral mucosa moist. Cardiovascular: Rate and rhythm are regular. No notable murmur, rub, or gallop. Respiratory: Lungs clear to auscultation anterolateral lung parker. Non-labored breathing. Abdomen: Soft, non-tender, obese abd, distended, bowel sounds present Extremities: Peripheral pulses intact. No edema. NTTP b/l calves. NVI right lower leg distal to surgical site Neuro: No focal neurological deficits. Speech is clear. Objective Data Vital Signs Vital Signs: Last Vital Signs Temp 97.5 F L 09/12/20 22:00 Pulse 87 09/12/20 22:00 Resp 16 09/12/20 22:00 BP 120/62 09/12/20 22:00 Pulse Ox 97 09/12/20 22:00 Intake/Output Intake
[2020-09-13 12:03] LABS: Glucose Point of Care 253 (65-105)
[2020-09-13] MEDS: BISACODYL 10 MG SUPPOSITORY RECTAL (12:37)
[2020-09-13] MEDS: MAGNESIUM HYDROXIDE SUSP 30 ML UDC PO (13:44)
[2020-09-13] MEDS: HYDROcodone/acetaminophen (*CRX) 7.5-325 MG TABLET 1 TAB PO ×2 (13:44→20:18)
[2020-09-13 14:00] VITALS: BP 129/73; PULSE 88; RESP 20; TEMP 36.7; O2SAT 100
--- NOTE | 2020-09-13 15:34 | PM.PNNEP ---
Progress Note: A&P Assessment and Plan (1) End stage renal disease: Code(s): N18.6 - End stage renal disease Status: Chronic Assessment and Plan: HD yesterday and continue her M/W/ dialysis schedule follow electrolytes, volume status, and clearance (2) Acute hyperkalemia: Code(s): E87.5 - Hyperkalemia Status: Acute Assessment and Plan: doing better dietary indiscretion?? follow trend (3) Basicervical fracture of neck of right femur: Qualifiers: Encounter type: initial encounter Fracture alignment: displaced Fracture type: closed Qualified Code(s): S72.041A - Displaced fracture of base of neck of right femur, initial encounter for closed fracture Code(s): S72.041A - Displaced fracture of base of neck of right femur, initial encounter for closed fracture Status: Acute Assessment and Plan: as noted by imaging studies on admission s/p ORIF of right femoral neck fracture by Orthopedics local wound care pain control PT/OT as per Orthopedics likely to need SNF on discharge (4) Elevated blood pressure reading: Code(s): R03.0 - Elevated blood-pressure reading, without diagnosis of hypertension Status: Acute Assessment and Plan: BP is usually well controlled without medications uses midodrine with dialysis treatments suspect elevated more so due to pain issues from fracture (5) Diabetes: Code(s): E11.9 - Type 2 diabetes mellitus without complications Status: Acute Assessment and Plan: follow accuchecks on SSI and Detemir Will continue to follow. Subjective Date/time seen: 09/13/20 15:34 Tolerated dialysis yesterday without any issues or problems to report; pain control appears to satisfactory; working with PT/OT as tolerated; no new issues/problems to report overnight or earlier this AM. Exam Narrative: Exam Narrative: General: WD/WN female in NAD Heart: normal S1 and S2; no rub Lungs: clear to auscultation Abdomen: soft, nontender, nondistended, positive bowel sounds Extremities: no cyanosis or clubbing; no edema Skin: warm and intact Objective Data Vital Signs Vital Signs: Vital Signs Temp Pulse Resp BP Pulse Ox 09/13/20 14:00 36.7 C 88 20 129/73 100 09/12/20 22:00 36.4 C L 87 16 120/62 97 Intake/Output Intake/Output: Intake & Output 09/10/20 09/11/20 09/12/20 09/13/20 23:59 23:59 23:59 23:59 Intake Total 980 760 750 315 Output Total 1839 2400 0 Balance -859 760 -1650 315 Meds/Results Medications: Active Medications Generic Name Dose Route Start Last Admin Trade Name Freq PRN Reason Stop Dose Admin Acetaminophen 650 mg 09/10/20 07:51 09/13/20 08:23 Acetaminophen 325 Mg Tablet PO 650 mg Q6H PRN Administration Mild Pain (1-3) or Fever Hydrocodone Bitart/Acetaminophen 1 tab 09/11/20 16:45 09/13/20 13:44 Hydrocodone/Acetaminophen (*Crx) 7.5-325 Mg Tablet PO 1 tab Q3H PRN Administration Pain Rated 4-6 Al Hydrox/Mg Hydrox/Simethicone 30 ml 09/11/20 16:45 Mag Hydrox/Al Hydrox/Simeth 30 Ml Udc PO Q6H PRN Indigestion Dextrose 12.5 gm 09/13/20 11:23 Dextrose 50% 25 Gm/50 Ml Syringe IV PUSH PRN PRN Hypoglycemia Protocol Docusate Sodium 100 mg 09/11/20 17:00 09/13/20 16:59 Docusate Sodium 100 Mg Capsule PO 100 mg BID RENEA Administration Glucagon 1 mg 09/08/20 18:10 Glucagon For Inj 1 Mg Vial IM PRN PRN Hypoglycemia Protocol Glucose 15 gm 09/13/20 11:23 Glucose Oral Gel 15 Gm Of Glucse In 37.5 Gm Tube PO PRN PRN Hypoglycemia Protocol Heparin Sodium (Porcine) 5,000 units 09/10/20 21:00 09/13/20 08:21 Heparin Sodium 5,000 Units/Ml Vial SUB-Q 5,000 units Q12HR RENEA Administration Albumin Human 50 mls @ 999 mls/hr 09/09/20 06:54 Albutein IVPB 10/09/20 06:55 Q10M PRN HYPOTENSION Dextrose 1,000 mls @ 10
[2020-09-13 18:02] LABS: Glucose Point of Care 162 (65-105)
[2020-09-13] MEDS: INSULIN DETEMIR 100 UNITS/ML 14 UNITS SUB-Q (20:26)
[2020-09-13 21:45] LABS: Glucose Point of Care 180 (65-105)
[2020-09-13 22:00] VITALS: BP 154/74; PULSE 80; RESP 16; TEMP 36.6; O2SAT 99
[2020-09-14] MEDS: ACETAMINOPHEN 325 MG TABLET 650 MG PO (03:52)
[2020-09-14 06:00] VITALS: BP 127/64; PULSE 75; RESP 16; TEMP 36.3; O2SAT 98
[2020-09-14 06:24] LABS: Basophils Percent Auto 0.2 % (0.2-1.2); Eosinophils Absolute Auto 0.3 K/mm3 (0-0.3); Eosinophils Percent Auto 3.5 % (0-4.4); Hematocrit 29.9 % (37.0-47.0); Hemoglobin 9.4 g/dL (12.0-15.0); Immature Granulocyte Absolute 0.07 K/mm3 (0.00-0.031); Immature Granulocyte Percent A 0.8 % (0-0.5); Lymphocytes Absolute Auto 1.38 K/mm3 (0.9-3.2); Lymphocytes Percent Auto 15.7 % (18.3-44.2); Mean Corpuscular HGB Conc 31.4 g/dl (32-36); Mean Corpuscular Hemoglobin 28.8 pg (26-34); Mean Corpuscular Volume 91.7 fl (80-100); Mean Platelet Volume 10.3 fl (7.4-10.4); Monocytes Percent Auto 10.9 % (2.6-8.5); Neutrophils Percent Auto 68.9 % (45.5-73.1); Platelet Count Result 168 k/mm3 (150-375); Red Blood Count 3.26 M/mm3 (4.2-5.4); Red Cell Distribution Width 14.6 % (11.5-14.5); White Blood Count 8.8 K/mm3 (4.5-10.0)
[2020-09-14 07:19] LABS: Albumin Level 3.4 g/dL (3.5-5.1); Anion Gap 13 mmol/L (8-16); Blood Urea Nitrogen 71 mg/dL (7-17); Calcium 8.8 mg/dL (8.4-10.2); Carbon Dioxide 29 mmol/L (22-30); Chloride 92 mmol/L (98-107); Estimated CRCL calculation 8 ml/min; Estimated Glomerular Filt Rate 5; Glucose 110 mg/dL (65-105); Magnesium 2.5 mg/dL (1.6-2.3); Phosphorus 6.1 mg/dL (2.5-4.5); Potassium 3.7 mmol/L (3.4-5.0); Sodium 134 mmol/L (137-145)
[2020-09-14 08:02] LABS: Glucose Point of Care 125 (65-105)
[2020-09-14] MEDS: DOCUSATE SODIUM 100 MG CAPSULE PO (08:09)
[2020-09-14] MEDS: VITAMIN B CMPLX/VIT C/FOLIC AC 1 CAPSULE 1 CAP PO (08:09)
[2020-09-14] MEDS: HEPARIN SODIUM 5,000 UNITS/ML VIAL 5000 UNITS SUB-Q (08:09)
[2020-09-14] MEDS: SEVELAMER CARBONATE 800 MG TABLET 3200 MG PO (08:09)
--- NOTE | 2020-09-14 11:07 | PM.DS ---
DS: Admitting Diagnosis Admitting Diagnosis Admitting Diagnosis: Right hip fracture, ESRD on HD, hyperkalemia DS: Discharge Diagnosis Discharge Diagnosis (1) Closed fracture of right hip: Qualifiers: Encounter type: initial encounter Qualified Code(s): S72.001A - Fracture of unspecified part of neck of right femur, initial encounter for closed fracture Code(s): S72.001A - Fracture of unspecified part of neck of right femur, initial encounter for closed fracture Status: Deleted Assessment and Plan: POD 3 ORIF right hip per Dr. Yang. Doing okay with pain, and improved with therapy. Dr. Yang following and appreciate recommendations. Patient will be going to [facility] for rehab once ready for discharge. Discharge to SNF today Post op care, pain management, PT/OT, DVT ppx (6 weeks) per Orthopedic Surgery Monitor (2) Acute hyperkalemia: Code(s): E87.5 - Hyperkalemia Status: Acute Assessment and Plan: Appears to have resolved. On MWF HD. Nephrology consulted and appreciate recommendations. f/u with Dr. Zambrano as outpatient (3) End-stage renal disease on hemodialysis: Code(s): N18.6 - End stage renal disease; Z99.2 - Dependence on renal dialysis Status: Acute Assessment and Plan: Cr 7.90 today, BUN 71. On MWF HD. Nephrology following Continue dialysis as scheduled after discharge Monitor daily labs (4) Type 2 diabetes mellitus with hyperglycemia: Qualifiers: Diabetes mellitus highway commissioner insulin use: with highway commissioner use Qualified Code(s): E11.65 - Type 2 diabetes mellitus with hyperglycemia; Z79.4 - skilled nursing (current) use of insulin Code(s): E11.65 - Type 2 diabetes mellitus with hyperglycemia Status: Acute Assessment and Plan: BGL 100s. Continue levemir 28 u QHS Accuchecks ACHS, hypoglycemia protocol, correctional insulin, diabetic diet DS: Summary Hospital Course Reason for hospitalization: Right hip fracture, hyperkalemia Hospital Course: Date of arrival: 09/08/20 Date of discharge: 09/14/20 Patient is a 59 year old female with a past medical history of end-stage renal disease on hemodialysis Tuesday and type 2 diabetes mellitus who presented to the ER on 09/08 after sudden onset of pain in her right leg after trying to get out of her car that day. While in the ED, she was found to have transcervical fracture of right femoral neck on hip/right pelvic xray. Dr. Yang (Orthopedic Surgery) was consulted in the ED for further management. She was also found to have potassium level of 6.1. She was given sodium bicarb, calcium gluconate, and dextrose/IV insulin in ED with some improvement in K level. She had missed HD treatment on day of injury. Dr. Zambrano consulted from ED as well. Patient admitted under this setting of right hip fracture and hyperkalemia. Please see H&P for further details. Patient was admitted to the hospitalist service for further management/treatment. Patient was given another round of sodium bicarb and calcium gluconate after admission to floor. She underwent HD on 09/09 with improvement in her potassium levels. She underwent ORIF of right femoral neck fracture on 09/[address] Yang with no immediate complications. Patient was started on subcutaneous heparin Q12hr for DVT prophylaxis given her ESRD and limited mobility; Dr. Yang recommended 6 weeks of DVT prophylaxis. She continued on MWF HD schedule after surgery. Plan was for her to be discharged to SNF for further rehab. During stay, potassium remained normal after dialysis treatments were resumed. Plan was for her to follow up with Dr. Yang after discharge. She was to use Tylenol as needed for hip pain. Patient agreeable and comfortable with plan for discharge. Patient hemodynamically stable and in impro
[2020-09-14] MEDS: HYDROcodone/acetaminophen (*CRX) 7.5-325 MG TABLET 1 TAB PO ×2 (11:59→15:07)
[2020-09-14 12:08] LABS: Glucose Point of Care 170 (65-105)
--- NOTE | 2020-09-14 13:09 | PM.PNNEP ---
Progress Note: A&P Assessment and Plan (1) End stage renal disease: Code(s): N18.6 - End stage renal disease Status: Chronic Assessment and Plan: HD tomorrow and continue her M/W/F dialysis schedule follow electrolytes, volume status, and clearance (2) Acute hyperkalemia: Code(s): E87.5 - Hyperkalemia Status: Acute Assessment and Plan: doing better/resolved follow trend (3) Basicervical fracture of neck of right femur: Qualifiers: Encounter type: initial encounter Fracture type: closed Fracture alignment: displaced Qualified Code(s): S72.041A - Displaced fracture of base of neck of right femur, initial encounter for closed fracture Code(s): S72.041A - Displaced fracture of base of neck of right femur, initial encounter for closed fracture Status: Acute Assessment and Plan: as noted by imaging studies on admission s/p ORIF of right femoral neck fracture by Orthopedics local wound care pain control PT/OT as per Orthopedics SNF on discharge today (4) Elevated blood pressure reading: Code(s): R03.0 - Elevated blood-pressure reading, without diagnosis of hypertension Status: Acute Assessment and Plan: BP is usually well controlled without medications uses midodrine with dialysis treatments suspect elevated more so due to pain issues from fracture follow trend of hemodyanmics (5) Diabetes: Code(s): E11.9 - Type 2 diabetes mellitus without complications Status: Acute Assessment and Plan: follow accuchecks on SSI and Detemir Will continue to follow. Subjective Date/time seen: 09/14/20 13:09 Continues to work with therapy as tolerated; noted plans for discharge today to SNF; pain control appears reasonably with current therapy; no apparent distress voiced at the time of my visit; no other complaints/issues voiced at this time or overnight. Exam Narrative: Exam Narrative: General: WD/WN female in NAD Heart: normal S1 and S2; no rub Lungs: clear to auscultation Abdomen: soft, nontender, nondistended, positive bowel sounds Extremities: no cyanosis or clubbing; trace edema Skin: no rash or nodules Objective Data Vital Signs Vital Signs: Vital Signs Temp Pulse Resp BP Pulse Ox 09/14/20 06:00 36.3 C L 75 16 127/64 98 09/13/20 22:00 36.6 C 80 16 154/74 H 99 Intake/Output Intake/Output: Intake & Output 09/11/20 09/12/20 09/13/20 09/14/20 23:59 23:59 23:59 23:59 Intake Total 760 750 855 440 Output Total 2400 0 0 Balance 760 -1650 855 440 Meds/Results Medications: Active Medications Generic Name Dose Route Start Last Admin Trade Name Freq PRN Reason Stop Dose Admin Acetaminophen 650 mg 09/10/20 07:51 09/14/20 03:52 Acetaminophen 325 Mg Tablet PO 650 mg Q6H PRN Administration Mild Pain (1-3) or Fever Hydrocodone Bitart/Acetaminophen 1 tab 09/11/20 16:45 09/14/20 15:07 Hydrocodone/Acetaminophen (*Crx) 7.5-325 Mg Tablet PO 1 tab Q3H PRN Administration Pain Rated 4-6 Al Hydrox/Mg Hydrox/Simethicone 30 ml 09/11/20 16:45 Mag Hydrox/Al Hydrox/Simeth 30 Ml Udc PO Q6H PRN Indigestion Dextrose 12.5 gm 09/13/20 11:23 Dextrose 50% 25 Gm/50 Ml Syringe IV PUSH PRN PRN Hypoglycemia Protocol Docusate Sodium 100 mg 09/11/20 17:00 09/14/20 08:09 Docusate Sodium 100 Mg Capsule PO 100 mg BID RENEA Administration Glucagon 1 mg 09/08/20 18:10 Glucagon For Inj 1 Mg Vial IM PRN PRN Hypoglycemia Protocol Glucose 15 gm 09/13/20 11:23 Glucose Oral Gel 15 Gm Of Glucse In 37.5 Gm Tube PO PRN PRN Hypoglycemia Protocol Heparin Sodium (Porcine) 5,000 units 09/10/20 21:00 09/14/20 08:09 Heparin Sodium 5,000 Units/Ml Vial SUB-Q 5,000 units Q12HR RENEA Administration Albumin Human 50 mls @ 999 mls/hr 09/09/20 06:54 Albutein IVPB 10/09/20 06:55
[2020-09-14 14:00] VITALS: BP 107/67; PULSE 80; RESP 16; TEMP 36.2; O2SAT 98
--- NOTE | 2020-09-14 14:00 | PC.NURSE ---
Report called to [place] at [facility]
== END 2020-09-14 16:20 | DRG 480 ==
LOC: ANHED 18:03 → ANH3MEDSUR 09-09 01:35
PROVIDERS: Emergency Medicine Emergency Medical Services; Family Medicine; Internal Medicine; Internal Medicine Nephrology; Orthopaedic Surgery; Physician Assistant; Admitting Provider Family Medicine; Emergency Provider Emergency Medicine; PCP Family Medicine; Visit Provider Physician Assistant
PROC: 0QS604Z Reposition Right Upper Femur with Internal Fixation Device, Open Approach (ICD-10-PCS; CPT 27245; principal; 2020-09-11 13:00)
DX: S72.001A Fracture of unspecified part of neck of right femur, initial encounter for closed fracture (principal); N18.6 End stage renal disease; Z68.41 Body mass index [BMI] 40.0-44.9, adult; E87.5 Hyperkalemia; E11.22 Type 2 diabetes mellitus with diabetic chronic kidney disease; E66.01 Morbid (severe) obesity due to excess calories; E11.65 Type 2 diabetes mellitus with hyperglycemia; X58.XXXA Exposure to other specified factors, initial encounter; Z20.822 Contact with and (suspected) exposure to COVID-19
CPT/HCPCS: 36415; 71045; 73502; 73564; 73700; 80048; 80053; 80069; 82948; 83735; 84100; 84132; 85025; 86704; 86706; 87340; 93005; 97110; 97161; 97165; 97530; 97535; 99285; A9270; C1713; C1769; C9803; G0257; J0131; J0610; J1644; J1815; J2250; J2270; J2370; J2405; J2704; J3010; J7030; J7040; Q5106; U0003; U0005

== ENCOUNTER 2020-11-17 13:20 | Emergency (ER) | payer MEDICARE, SELFPAY ==
--- NOTE | ~2020-11-17 | XR_ITS ---
EXAMINATION: XR chest 1V portable EXAM DATE: 11/17/2020 13:42 INDICATION: Bilateral lower extremity swelling, edema. History CHF. TECHNIQUE: Portable AP frontal chest x-ray was obtained. Comparison is made to prior examination from 09/09/2020. FINDINGS: The lungs are clear. There are no pleural effusions. Cardiac silhouette is prominent but magnified on this AP technique. There is no pneumothorax suspected. The bones and soft tissues are unremarkable. Left subclavian and upper arm vascular stents. IMPRESSION: No acute cardiopulmonary findings. Reviewed, dictated and finalized at location B.
--- NOTE | ~2020-11-17 | US_ITS ---
EXAMINATION: US venous doppler [facility] EXAM DATE: 11/17/2020 14:35 INDICATION: Bilateral leg swelling. TECHNIQUE: Multiple grayscale, color flow and Doppler images of the lower extremity deep venous syste ms bilaterally were obtained and reviewed. Comparison is made to prior examination from 09/25/2018. FINDINGS: Right side: The right common femoral, femoral and profunda veins demonstrate normal color flow, respi ratory variation, augmentation and compressibility. Compressibility, color flow confirmed within the right popliteal, posterior tibial, peroneal, and greater saphenous veins. Left side: The left common femoral, femoral and profunda veins demonstrate normal color flow, respira tory variation, augmentation and compressibility. Compressibility, color flow confirmed within the l eft popliteal, posterior tibial, peroneal, and greater saphenous veins. IMPRESSION: 1. No lower extremity deep venous thrombosis bilaterally. Reviewed, dictated and finalized at location B.
[2020-11-17 13:18] VITALS: BP 142/85; PULSE 81; RESP 20; TEMP 37.1; O2SAT 95
[2020-11-17 13:50] LABS: Basophils Percent Auto 0.2 % (0.2-1.2); Eosinophils Absolute Auto 0.2 K/mm3 (0-0.3); Eosinophils Percent Auto 2.3 % (0-4.4); Hemoglobin 9.3 g/dL (12.0-15.0); Immature Granulocyte Absolute 0.04 K/mm3 (0.00-0.031); Immature Granulocyte Percent A 0.5 % (0-0.5); Lymphocytes Absolute Auto 0.95 K/mm3 (0.9-3.2); Lymphocytes Percent Auto 11.4 % (18.3-44.2); Mean Corpuscular HGB Conc 32.1 g/dl (32-36); Mean Corpuscular Hemoglobin 29.9 pg (26-34); Mean Corpuscular Volume 93.2 fl (80-100); Mean Platelet Volume 9.4 fl (7.4-10.4); Monocytes Absolute Auto 0.6 K/mm3 (0.1-0.6); Monocytes Percent Auto 7.5 % (2.6-8.5); Neutrophils Absolute Auto 6.5 K/mm3 (1.3-6.7); Neutrophils Percent Auto 78.1 % (45.5-73.1); Platelet Count Result 233 k/mm3 (150-375); Red Blood Count 3.11 M/mm3 (4.2-5.4); Red Cell Distribution Width 14.1 % (11.5-14.5); White Blood Count 8.4 K/mm3 (4.5-10.0)
[2020-11-17 13:59] LABS: Alanine Aminotransferase 19 U/L (4-35); Albumin Level 3.9 g/dL (3.5-5.1); Alkaline Phosphatase 116 U/L (38-126); Anion Gap 8 mmol/L (8-16); Aspartate Amino Transferase 43 U/L (14-36); Bilirubin,Total 0.6 mg/dL (0.2-1.3); Blood Urea Nitrogen 35 mg/dL (7-17); Calcium 9.5 mg/dL (8.4-10.2); Carbon Dioxide 37 mmol/L (22-30); Chloride 90 mmol/L (98-107); Estimated CRCL calculation 19 ml/min; Estimated Glomerular Filt Rate 14; Glucose 224 mg/dL (65-105); INR 1.1; Potassium 3.7 mmol/L (3.4-5.0); Prothrombin Time 14.3 Seconds (11.1-14.7); Sodium 135 mmol/L (137-145)
[2020-11-17 14:00] LABS: Partial Thromboplastin Time 29.4 SECONDS (22.3-36.8)
--- NOTE | 2020-11-17 14:20 | ED.GENADULT ---
HPI - General Adult General Chief complaint: Extremity Injury, Lower Stated complaint: R HIP PAIN AND SWELLING S/P SURGERY Source: patient and RN notes reviewed Mode of arrival: ambulatory Limitations: no limitations History of Present Illness HPI narrative: Patient is a 59-year-old female who presents to emergency department per EMS patient is currently in rehab status post hip replacement and has been having lower extremity swelling bilaterally with some aching pain patient also notes some sores on the right leg that have popped up over the last week patient has history of chronic swelling and is a dialysis patient and did receive dialysis today patient denies any dyspnea shortness of breath chest pain lightheadedness or dizziness. Related Data Home Medications Medication Instructions Recorded Confirmed sevelamer carbonate [Renvela] 800 mg PO TID 05/21/19 11/06/20 vitamin B complex-vitamin C-folic 1 tablet PO DAILY 08/14/19 11/06/20 acid 0.8 mg tablet midodrine See Rx Instructions .ROUTE .COMPLEX 09/08/20 11/06/20 insulin glargine 100 unit/mL (3 28 unit SUBCUT QPM ml 11/06/20 11/06/20 mL) subcutaneous pen Allergies Allergy/AdvReac Type Severity Reaction Status Date / Time amoxicillin Allergy Swelling Verified 11/17/20 13:26 iodine Allergy Other Verified 11/17/20 13:26 Review of Systems Review of Systems: All systems reviewed & are unremarkable except as noted in HPI and below PMFSH Past Medical History Medical History Anemia in chronic kidney disease CHF (congestive heart failure) EF 35% End-stage renal disease on hemodialysis On hemodialysis since June 2017; dialysis Tuesday followed by Dr. Kaur Iron deficiency anemia Kidney stones Type 2 diabetes mellitus 07/31/2020 hemoglobin A1c 7.1 Surgical History Surgical History AV fistula Left upper arm AV fistula created 2017 Basicervical fracture of neck of right femur ORIF August 2020 H/O arthroscopy of right knee History of bilateral carpal tunnel release History of left knee replacement August 2018 History of lumbar surgery Spinal stenosis History of total right knee replacement May 2018 Family History Family History Father , in his 40s of premature coronary artery disease Cerebrovascular accident Heart disease Mother Diabetes mellitus Bone cancer Cervical cancer Sibling , of heart disease in his 50s Hypertension Heart disease Diabetes mellitus Social History Social History Social History: 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 1 daughter who is 24 years old. Smoking status: Never smoker Second hand tobacco smoke exposure: No Alcohol intake: never Substance use: never Gender identity (if verbalized by the patient): Male Spiritual care concerns: No Exam Narrative: Exam Narrative: GENERAL: Well-appearing, obese, and in no acute distress. HEAD: Normocephalic, atraumatic. EYES: PERRLA and EOMI. ENT: Nares clear, no rhinorrhea or epistaxis. Mucous membranes moist. NECK: Supple. No adenopathy or masses. No carotid bruits or JVD CHEST: Clear to auscultation. No respiratory distress. No wheezes rales or rhonchi HEART: Regular rate and rhythm. No murmur heard. Normal peripheral pulses. ABDOMEN: Soft, nontender, nondistended EXTREMITIES: Normal range of motion. 4+ edema bilateral lower extremities. Few small scattered lesions of the right leg that are superficial and not erythematous and nonweeping SKIN: Warm, dry, no rash. NEURO: No focal deficits. Alert and oriented x3. Capillary refill less than 2 seconds. Cranial nerves II through XII grossly intact. Neurovascularly intact PSYCH: Normal mood and aff
--- NOTE | 2020-11-17 14:27 | PC.NURSE ---
Pts pedal pulses strong and located using dopplar. EDP notified.
[2020-11-17 15:50] VITALS: BP 163/93; PULSE 91; RESP 16; TEMP 36.6; O2SAT 97
--- NOTE | 2020-11-17 16:24 | PC.NURSE ---
made contact with [facility] and [facility] to transfer pt back to [facility]. both companies declined. Called [facility] accepted with an eta of 1800
--- NOTE | 2020-11-17 17:00 | PC.NURSE ---
ilya has arrived and is aware that is pt is going to [facility]
[2020-11-17 17:09] VITALS: BP 162/76; PULSE 92; RESP 16; O2SAT 100
== END 2020-11-17 17:14 ==
PROVIDERS: Emergency Medicine Emergency Medical Services; Emergency Provider Emergency Medicine; PCP Family Medicine
DX: R60.0 Localized edema (principal); Z96.641 Presence of right artificial hip joint; E11.22 Type 2 diabetes mellitus with diabetic chronic kidney disease; N18.6 End stage renal disease; I50.9 Heart failure, unspecified; D63.1 Anemia in chronic kidney disease; Z99.2 Dependence on renal dialysis; Z79.4 Long term (current) use of insulin; Z87.442 Personal history of urinary calculi; Z98.1 Arthrodesis status; Z96.653 Presence of artificial knee joint, bilateral
CPT/HCPCS: 36415; 71045; 80053; 85025; 85610; 85730; 93970; 99284

== ENCOUNTER 2021-08-23 20:41 | Emergency (ER) | payer MEDICARE, SELFPAY ==
--- NOTE | ~2021-08-23 | XR_ITS ---
EXAMINATION: XR chest 1V portable EXAM DATE: 08/23/2021 22:31 INDICATION: SOB, CHF. TECHNIQUE: Portable AP frontal chest x-ray was obtained. Comparison is made to prior examination from 11/17/2020. FINDINGS: Mild cardiomegaly. Dialysis catheter. Moderate amount of bilateral edema or pneumonia. Smal l pleural effusions. No pneumothorax. The bones are osteopenic. There are bony degenerative changes. Left-sided vascular stents, probable upper arm graft. IMPRESSION: Cardiomegaly. Moderate amount of bilateral edema or pneumonia. Reviewed, dictated and finalized at location B. ROAD CAR INSPECTOR
--- NOTE | 2021-08-23 20:52 | ECG_ITS ---
Measurements Intervals [place] Rate: 110 P: 59 WV: 168 QRS: 25 QRSD: 94 T: 76 QT: 319 QTc: 432 Interpretive Statements SINUS TACHYCARDIA BORDERLINE ST-T WAVE ABNORMALITY- HIGH LATERAL LEADS BASELINE WANDER- V1-V3 ABNORMAL ECG Electronically Signed On 08-24-2021 6:16:26 POLE PEELING MACHINE OPERATOR HELPER by Kamran Clark D.O.
[2021-08-23 20:56] VITALS: BP 171/83; PULSE 103; RESP 23; O2SAT 100
[2021-08-23 21:01] VITALS: O2SAT 100
--- NOTE | 2021-08-23 22:06 | ED.GENADULT ---
HPI - General Adult General Chief complaint: Shortness of Breath/Dyspnea Stated complaint: missed dialysis tuesday sob on 10L NRB Source: patient and EMS History of Present Illness HPI narrative: 60-year-old female presented to the emergency department for evaluation of worsening shortness of breath. Patient follows up with Dr. Zambrano and does get dialysis on Tuesday and Tuesday. Patient states that her dialysis on Tuesday was canceled due to weather. Patient states a few hours prior to arrival she began developing some worsening shortness of breath. Patient does have history of congestive heart failure. Patient is on dialysis. Related Data Home Medications Medication Instructions Recorded Confirmed sevelamer carbonate [Renvela] 800 mg PO TID 05/21/19 04/14/21 vitamin B complex-vitamin C-folic 1 tablet PO DAILY 08/14/19 04/14/21 acid 0.8 mg tablet midodrine See Rx Instructions .ROUTE .COMPLEX 09/08/20 04/14/21 cholecalciferol (vitamin D3) 1,250 1,250 mcg PO WEEKLY 04/14/21 04/14/21 mcg (50,000 unit) capsule B complex-vitamin C-folic acid tablet 08/23/21 [Mimi-Tai] Allergies Allergy/AdvReac Type Severity Reaction Status Date / Time levofloxacin [From Levaquin] Allergy Unknown-FROM Verified 08/23/21 21:[address] THAO Sulfa (Sulfonamide Allergy Unknown-FROM Verified 08/23/21 21:03 Antibiotics) H&P DR. THAO amoxicillin AdvReac Swelling Verified 08/23/21 21:03 iodine AdvReac Itching Verified 08/23/21 21:03 Review of Systems Review of Systems: CONSTITUTIONAL: Denies fever, chills, or sweats. EYES: Denies visual changes, redness, or discharge. ENT: Denies rhinorrhea, congestion, sore throat, or otalgia. CARDIOVASCULAR: Denies chest pain, palpitations, or edema. RESPIRATORY: Reported increased shortness of breath at home but states upon arrival emergency department she feels improved. GASTROINTESTINAL: Denies abdominal pain, nausea, vomiting, or diarrhea. GENITOURINARY: Denies dysuria or hematuria. SKIN: Denies rash or itching. MUSCULOSKELETAL: Patient states she is nonweightbearing after a hip surgery NEUROLOGIC: Denies headache, numbness, or weakness. [facility] Past Medical History Medical History Anemia in chronic kidney disease CHF (congestive heart failure) EF 35% End-stage renal disease on hemodialysis On hemodialysis since June 2017; dialysis Tuesday followed by Dr. Kaur Iron deficiency anemia Kidney stones Type 2 diabetes mellitus 07/31/2020 hemoglobin A1c 7.1 Surgical History Surgical History AV fistula Left upper arm AV fistula created 2017 Basicervical fracture of neck of right femur ORIF August 2020 H/O arthroscopy of right knee History of bilateral carpal tunnel release History of left knee replacement August 2018 History of lumbar surgery Spinal stenosis History of total right knee replacement May 2018 Family History Family History Father , in his 40s of premature coronary artery disease Cerebrovascular accident Heart disease Mother Diabetes mellitus Bone cancer Cervical cancer Sibling , of heart disease in his 50s Hypertension Heart disease Diabetes mellitus Social History Social History (Updated 12/05/20 @ 08:18 by Fawn Smart RN) Social History: 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 1 daughter who is 24 years old. Smoking status: Never smoker Second hand tobacco smoke exposure: No Alcohol intake: never Substance use: never Substance use type: does not use Additional living arrangements comments: [facility] [phone] Gender identity (if verbalized by the patient): Female Spiritual care concerns: No Exam Narrative: APPEARANCE: Well appea
[2021-08-23 22:07] VITALS: O2SAT 100
[2021-08-23 22:08] VITALS: O2SAT 100
[2021-08-23 22:44] LABS: Basophils Percent Auto 0.2 % (0.2-1.2); Eosinophils Absolute Auto 0.1 K/mm3 (0-0.3); Eosinophils Percent Auto 1.6 % (0-4.4); Hematocrit 26.2 % (37.0-47.0); Hemoglobin 8.1 g/dL (12.0-15.0); Immature Granulocyte Absolute 0.01 K/mm3 (0.00-0.031); Immature Granulocyte Percent A 0.2 % (0-0.5); Lymphocytes Absolute Auto 0.66 K/mm3 (0.9-3.2); Lymphocytes Percent Auto 10.2 % (18.3-44.2); Mean Corpuscular HGB Conc 30.9 g/dl (32-36); Mean Corpuscular Hemoglobin 29.8 pg (26-34); Mean Corpuscular Volume 96.3 fl (80-100); Mean Platelet Volume 10.4 fl (7.4-10.4); Monocytes Absolute Auto 0.3 K/mm3 (0.1-0.6); Monocytes Percent Auto 4.8 % (2.6-8.5); Neutrophils Absolute Auto 5.4 K/mm3 (1.3-6.7); Platelet Count Result 178 k/mm3 (150-375); Red Blood Count 2.72 M/mm3 (4.2-5.4); Red Cell Distribution Width 15.9 % (11.5-14.5); White Blood Count 6.5 K/mm3 (4.5-10.0)
[2021-08-23 22:52] LABS: SARS-CoV-2 RNA PCR Negative
[2021-08-23 22:53] LABS: Alanine Aminotransferase 16 U/L (4-35); Alkaline Phosphatase 147 U/L (38-126); Anion Gap 14 mmol/L (8-16); Aspartate Amino Transferase 24 U/L (14-36); Bilirubin,Total 0.7 mg/dL (0.2-1.3); Blood Urea Nitrogen 107 mg/dL (7-17); Calcium 8.6 mg/dL (8.4-10.2); Carbon Dioxide 23 mmol/L (22-30); Chloride 103 mmol/L (98-107); Estimated CRCL calculation 7 ml/min; Estimated Glomerular Filt Rate 4; Glucose 199 mg/dL (65-110); Potassium 5.4 mmol/L (3.4-5.0); Sodium 140 mmol/L (137-145)
[2021-08-23 23:34] VITALS: RESP 20
[2021-08-23 23:38] VITALS: BP 167/79; PULSE 97; RESP 26; O2SAT 98
--- NOTE | 2021-08-24 01:15 | PC.NURSE ---
[facility] called for transport home. ETA 0900. Pt states she has a dialysis appt at 0700 at [facility] in [place]. This RN informed hot metal charger. Will attempt to call dialysis center at 0500 when they open to facilitate transport.
[2021-08-24 03:12] VITALS: BP 162/88; PULSE 94; RESP 20; O2SAT 99
--- NOTE | 2021-08-24 05:26 | PC.NURSE ---
After extensive conversation between pt, this RN, logging crew supervisor, bilingual secretary, and family it has been determined that the only course of action is for this pt to be transported by [facility] with an ETA of 0900. The pt does have dialysis scheduled for 1000 in [place] this morning. The pt reports that she is 100% non weight bearing and un able to ride in a private vehicle to dialysis for someone else to pick her up. The pt did miss dialysis on Tuesday due to weather so she is concerned about missing another appointment but as she is not able to ride in any other vehicle this is the only course of action we can take at this time. All parties involved have been updated and are aware of the ongoing situation.
--- NOTE | 2021-08-24 07:30 | PC.NURSE ---
per [facility] was cancelled
== END 2021-08-24 08:54 | disposition home or self-care (01) ==
PROVIDERS: Emergency Provider Emergency Medicine
DX: R06.00 Dyspnea, unspecified (principal); Z20.822 Contact with and (suspected) exposure to COVID-19; E11.22 Type 2 diabetes mellitus with diabetic chronic kidney disease; N18.6 End stage renal disease; Z99.2 Dependence on renal dialysis; I50.9 Heart failure, unspecified; D63.1 Anemia in chronic kidney disease; Z87.442 Personal history of urinary calculi; Z96.653 Presence of artificial knee joint, bilateral; R00.0 Tachycardia, unspecified; R94.31 Abnormal electrocardiogram [ECG] [EKG]; Z79.4 Long term (current) use of insulin
CPT/HCPCS: 36415; 71045; 80053; 85025; 93005; 99284; C9803; U0003; U0005

== ENCOUNTER 2021-11-11 08:52 | Observation (INO) | payer MEDICARE, MEDICAID, SELFPAY ==
[2021-11-11] VITALS (22 sets, daily range): BP systolic 127–177; BP diastolic 52–91; PULSE 71–103; RESP 16–20; TEMP 36–37.9; O2SAT 95–100; BMI 36.3
--- NOTE | ~2021-11-11 | CT_ITS ---
EXAMINATION: CT brain wo con DATE: 11/11/2021 10:11 INDICATION: Altered mental status and confusion TECHNIQUE: Computed tomography (CT) of the head was performed without intravenous contrast. Sagittal and coronal reconstructions were performed. The mA was adjusted according to patient size. Iterative reconstruction technique was employed. The dose-length product was 605.33 mGy-cm. COMPARISON: None FINDINGS: No acute intracranial hemorrhage, acute infarction or abnormal extra axial fluid collection. Ventricl es are normal and symmetric. No mass/mass effect. Mucosal thickening in the left maxillary sinus whic h appears smaller than the right which could be either developmental or sequela of chronic sinusitis. Additional mild mucosal thickening versus small amount of posterior layering mucus in the left sphen oid sinus. The orbits and mastoid air cells are normal. Hyperostosis frontalis. IMPRESSION: 1. No acute intracranial process. Reviewed, dictated and finalized at location B.
--- NOTE | ~2021-11-11 | XR_ITS ---
EXAMINATION: XR chest 1V portable DATE: 11/11/2021 12:43 INDICATION: Shortness of breath. Shingles. TECHNIQUE: A single frontal view of the chest was obtained. COMPARISON: Chest single view 08/23/2021 FINDINGS: There is a diffuse interstitial pattern, consistent with mild pulmonary edema. No pleural e ffusion or pneumothorax. Cardiomegaly is noted. Vascular stents overlie the left chest and left upper arm. There is compression of a stent in left upper arm. IMPRESSION: 1. Mild pulmonary edema. 2. Cardiomegaly. 3. Compression of a stent in left upper arm. Reviewed, dictated and finalized at location A.
--- NOTE | 2021-11-11 09:14 | ECG_ITS ---
Measurements Intervals [place] Rate: 87 P: 37 HI: 176 QRS: 10 QRSD: 108 T: 54 QT: 396 QTc: 477 Interpretive Statements SINUS RHYTHM BASELINE ARTIFACT COMPARED TO ECG 08/23/2021 20:46:44 SINUS RHYTHM NOW PRESENT Electronically Signed On 11-11-2021 13:48:19 CDT by Margareth Lima M.D.
--- NOTE | 2021-11-11 09:16 | ED.AMS ---
HPI - Altered Mental Status General Chief Complaint: Altered Mental Status Stated Complaint: ams/allergic reaction Time Seen by Provider: 11/11/21 08:53 Source: patient Mode of arrival: ambulatory Limitations: no limitations History of Present Illness HPI narrative: Patient is a 60-year-old female sent here from dialysis due to status, described as confusion. On arrival patient is alert awake and oriented x4. Patient states that ever since she started taking Valtrex for shingles 2 days ago she has been having occasional episodes of confusion and talking to myself . Patient denies any headache, dizziness, speech or visual disturbance, focal weakness or numbness, chest pain, shortness of breath, abdominal pain, nausea, vomiting, diarrhea, fever or chills. Related Data Home Medications Medication Instructions Recorded Confirmed sevelamer carbonate [Renvela] 800 mg PO TID 05/21/19 11/11/21 cholecalciferol (vitamin D3) 1,250 1,250 mcg PO WEEKLY 04/14/21 11/11/21 mcg (50,000 unit) capsule valacyclovir [Valtrex] 1,000 mg PO TID 11/11/21 11/11/21 Allergies Allergy/AdvReac Type Severity Reaction Status Date / Time Iodinated Contrast Media Allergy Severe Rash Verified 11/11/21 08:59 levofloxacin [From Levaquin] Allergy Unknown-FROM Verified 11/11/21 08:[address] THAO Sulfa (Sulfonamide Allergy Unknown-FROM Verified 11/11/21 08:59 Antibiotics) H&P DR. THAO amoxicillin AdvReac Swelling Verified 11/11/21 08:59 iodine AdvReac Itching Verified 11/11/21 08:59 Review of Systems Review of Systems: Per HPI All systems reviewed & are unremarkable except as noted in HPI and below Constitutional: Constitutional: Denies body ache(s), Denies chills, Denies excessive sweating, Denies fatigue, Denies fever(s), Denies headache(s), Denies lethargy, Denies malaise, Denies weakness and Denies weight loss Eyes: Eyes: Denies blurry vision, Denies change in vision and Denies loss of vision ENT: Denies dizziness, Denies ear discharge, Denies headache(s), Denies lip swelling, Denies epistaxis, Denies nasal congestion, Denies neck pain, Denies throat swelling and Denies tongue swelling Cardiovascular: Cardiovascular: Denies chest pain, Denies chest pain at rest, Denies chest pain with activity, Denies diaphoresis, Denies rapid heart rate, Denies edema, Denies irregular heart rhythm, Denies lightheadedness, Denies palpitations, Denies dyspnea and Denies dyspnea on exertion Respiratory: Respiratory: Denies chest congestion, Denies cough, Denies hemoptysis, Denies dyspnea and Denies dyspnea on exertion Gastrointestinal: Gastrointestinal: Denies abdominal pain, Denies melena, Denies hematochezia, Denies diarrhea, Denies nausea, Denies vomiting and Denies hematemesis Musculoskeletal: Musculoskeletal: Denies abnormal gait, Denies deformity, Denies joint swelling, Denies limited range of motion, Denies neck pain and Denies numbness Neurologic: Denies Abnormal speech present, Denies abnormal gait, Denies dizziness, Denies headache(s), Denies focal weakness, Denies loss of vision, Denies numbness, Denies Other visual disturbances, Denies Sensory deficit (Neuro) and Denies weakness Psychiatric: Psychiatric: Denies confusion, Denies depression, Denies auditory hallucinations, Denies homicidal ideation and Denies suicidal ideation Endocrine: Endocrine: Denies cold intolerance, Denies excessive sweating, Denies fatigue, Denies heat intolerance and Denies palpitations Hematologic/Lymphatic: Hematologic/Lymphatic: Denies easy bleeding and Denies easy bruising Allergic/Immunologic: Allergic/Immunologic: Denies lip swelling, Denies throat swelling and Denies tongue swelling PMFSH Past Medical History Medical History Anemia in chronic kidney disease CHF (congestive heart failure) EF 35% End-stage renal disease on hemodialysis On hemodialysis since June 2017; dialysis Tuesday
[2021-11-11 09:38] LABS: Basophils Percent Auto 0.4 % (0.2-1.2); Eosinophils Percent Auto 1.2 % (0-4.4); Hematocrit 34.4 % (37.0-47.0); Hemoglobin 10.4 g/dL (12.0-15.0); Immature Granulocyte Absolute 0.01 K/mm3 (0.00-0.031); Immature Granulocyte Percent A 0.4 % (0-0.5); Lymphocytes Absolute Auto 0.43 K/mm3 (0.9-3.2); Lymphocytes Percent Auto 16.7 % (18.3-44.2); Mean Corpuscular HGB Conc 30.2 g/dl (32-36); Mean Corpuscular Hemoglobin 28.3 pg (26-34); Mean Corpuscular Volume 93.7 fl (80-100); Mean Platelet Volume 9.8 fl (7.4-10.4); Monocytes Absolute Auto 0.2 K/mm3 (0.1-0.6); Monocytes Percent Auto 9.3 % (2.6-8.5); Neutrophils Absolute Auto 1.9 K/mm3 (1.3-6.7); Platelet Count Result 115 k/mm3 (150-375); Red Blood Count 3.67 M/mm3 (4.2-5.4); Red Cell Distribution Width 15.3 % (11.5-14.5); White Blood Count 2.6 K/mm3 (4.5-10.0)
[2021-11-11 10:02] LABS: Anion Gap 8 mmol/L (8-16); Blood Urea Nitrogen 60 mg/dL (7-17); Calcium 8.6 mg/dL (8.4-10.2); Carbon Dioxide 32 mmol/L (22-30); Chloride 93 mmol/L (98-107); Estimated CRCL calculation 11 ml/min; Estimated Glomerular Filt Rate 8; Glucose 235 mg/dL (65-110); Potassium 5.3 mmol/L (3.4-5.0); Sodium 133 mmol/L (137-145)
--- NOTE | 2021-11-11 10:03 | PC.NURSE ---
Pt to CT via stretcher
[2021-11-11] MEDS: ALBUTEROL SULFATE NEB 2.5 MG/0.5 ML INH 5 MG INHALATION (10:51)
--- NOTE | 2021-11-11 11:10 | PC.NURSE ---
Pt states to BUBBA benoit that she would like to go home and not finish dialysis today. BUBBA stated to pt that he would like to admit her an dhave her seen by neurology. Pt is agreeable at this time.
--- NOTE | 2021-11-11 11:14 | PC.NURSE ---
Pt states to this RN that she does not want to be admitted and does not want to be evaluated by neurology. Message left at BUBBA benoit's desk and will verbally tell him when he is available.
--- NOTE | 2021-11-11 11:16 | PC.NURSE ---
ERP kaycee aware that pt does not want to be admitted and does not want to stay, ERP at bedside to speak with pt. Pt is alert and oriented x 4. Pt told ERP she will stay.
--- NOTE | 2021-11-11 12:19 | PC.NURSE ---
Unable to establish IV access at this time. Another RN attempted and was unsuccessful. Dwayne Duron RN called for ultrasound IV placement.
--- NOTE | 2021-11-11 12:37 | PM.IMHP ---
H&P: HPI History of Present Illness Date/Time: Patient was placed observation status for expected length of stay less than 23 hours for management, will plan to re-evaluate tomorrow for improvement. 11/11/21 12:37 Chief Complaint: Altered mental status Narrative: Ms. Bentley is a 60-year-old female who presented emergency room from hemodialysis with altered mental status and hypertension. Patient was recently diagnosed with shingles and was placed on Valtrex. Patient states that she picked up her Valtrex on Tuesday and started taking it and today she went to hemodialysis and they stated that she was acting differently than normal. Patient states that her friend also noticed that she was acting a little different. Patient is currently alert oriented x4, but she is speaking very quickly and having flight of ideas. Patient states that she had approximately 1 hour of hemodialysis today before she was sent to the emergency room. Patient states that she noticed that she had has been ?talking to herself more than normal. Patient denies any hallucinations, suicidal or homicidal ideations, lightheadedness, dizziness, weakness, numbness, chest pain, shortness a breath, abdominal pain, nausea, vomiting, constipation, or diarrhea. Upon evaluation in emergency room patient was noted to have a mildly elevated potassium at 5.3. CT of the head showed no intracranial process. And blood pressure was mildly elevated at 166/65. Patient has a known history of end-stage renal disease and is on hemodialysis, diabetes mellitus, hypertension, congestive heart failure with ejection fraction 35%, and iron deficiency anemia. Patient states that she has been taking all medications without any difficulty and has not missed any recent dialysis treatments. Review of Systems Review of Systems: A 12 point review of systems was completed patient all pertinent positive and negative per HPI the remainder are unremarkable. [facility] Past Medical History Medical History Anemia in chronic kidney disease CHF (congestive heart failure) EF 35% End-stage renal disease on hemodialysis On hemodialysis since June 2017; dialysis Tuesday followed by Dr. Kaur Iron deficiency anemia Kidney stones Type 2 diabetes mellitus 07/31/2020 hemoglobin A1c 7.1 Surgical History Surgical History AV fistula Left upper arm AV fistula created 2018 Basicervical fracture of neck of right femur ORIF August 2020 H/O arthroscopy of right knee History of bilateral carpal tunnel release History of left knee replacement August 2018 History of lumbar surgery Spinal stenosis History of total right knee replacement May 2018 Family History Family History Father , in his 40s of premature coronary artery disease Cerebrovascular accident Heart disease Mother Diabetes mellitus Bone cancer Cervical cancer Sibling , of heart disease in his 50s Hypertension Heart disease Diabetes mellitus Social History Social History Social History: 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 1 daughter who is 24 years old. Smoking status: Never smoker Second hand tobacco smoke exposure: No Alcohol intake: never Substance use: never Substance use type: does not use Additional living arrangements comments: [facility] [phone] Gender identity (if verbalized by the patient): Female Spiritual care concerns: No Meds Home Medications and Allergies Home Medications Medication Instructions Recorded Confirmed Type sevelamer carbonate [Renvela] 800 mg PO TID 05/21/19 11/11/21 History acetaminophen [Mapap 650 mg PO Q6H PRN #0 tablet 09/14/20 11/11/21 Rx (acetaminophen)]
--- NOTE | 2021-11-11 13:05 | ADMGEN ---
This patient, Kate Bentley, was admitted to Medical Room 345-. Patient/family oriented to hospital policies and general routines including ID bracelet, bed and alarms, visiting hours, pain management, procedures, bathroom and other care routines, personal items, smoking policy, room service/diet, and visiting hours. Information on how to activate the Rapid Response Team has been discussed. Patient/Family are encouraged to report perceived risks to care and to ask questions if they do not understand what they are told or what they should do.
[2021-11-11 16:33] LABS: Glucose Point of Care 172 mg/dl (65-105)
[2021-11-11] MEDS: SEVELAMER CARBONATE 800 MG TABLET PO (17:10)
[2021-11-11] MEDS: ERGOCALCIFEROL 50,000 UNIT CAPSULE 50000 UNITS PO (17:36)
[2021-11-11 17:44] LABS: Hepatitis B Surface Antigen Negative (Negative)
[2021-11-11 18:14] LABS: Hepatitis B Surface Anti Res Positive
--- NOTE | 2021-11-11 18:27 | PM.CNNEP ---
Assessment and Plan Assessment and plan (1) End stage renal disease: Code(s): N18.6 - End stage renal disease Status: Chronic Assessment and Plan: only received a partial treatment at outpatient dialysis center plan HD today to maintain M/W/F schedule follow electrolytes, volumes status, and clearance (2) Altered mental status: Qualifiers: Altered mental status type: unspecified Qualified Code(s): R41.82 - Altered mental status, unspecified Code(s): R41.82 - Altered mental status, unspecified Status: Acute Assessment and Plan: seems to be doing better currently CT of brain negative felt to be due to Valtrex overdosing -- for ESRD, should be 500mg qday; was prescribed 1 gram tid follow mentation with Valtrex of hold (3) Hypertension: Code(s): I10 - Essential (primary) hypertension Status: Chronic Assessment and Plan: elevated but has not had her full dialysis treatment check post dialysis resume home medications (4) Anemia: Code(s): D64.9 - Anemia, unspecified Status: Chronic Assessment and Plan: due to ESRD Epogen with HD follow trend of H/H (5) Diabetes: Code(s): E11.9 - Type 2 diabetes mellitus without complications Status: Chronic Assessment and Plan: follow accuchecks glycemic control Will continue to follow. History of Present Illness Reason for Consult Consult date: 11/11/21 Reason for consult: end stage renal disease Chief Complaint Chief complaint: Altered Mental Status, end-stage renal disease nee History of Present Illness Narrative: The patient is a 60-year-old female with a past medical history as outlined below who presented to [facility] Emergency room from her outpatient dialysis center for further evaluation of altered mental status. The patient was recently diagnosed with shingles and started on Valtrex. She picked up her Valtrex and started the medication on Tuesday and by the time she went to dialysis today, she stated that she was feeling somewhat strange. her friend also reported that she was acting somewhat different than her usual baseline. She was alert and oriented but was speaking very quickly and having what appeared to be flight of ideas. This continued and when she showed up for her outpatient dialysis treatment earlier this morning, the dialysis nurses noted that her mentation was also somewhat different than usual as well. About an hour into her dialysis treatment, it seemed that her mentation was getting worse as she apparently was talking to herself consistently and at times not making sense to the dialysis nurses. Her dialysis treatment was aborted and she was sent to [facility] for further evaluation. Workup and evaluation in the emergency room demonstrated the patient to be hemodynamically stable if not a bit hypertensive and in no acute distress. It was also noted that she was talking somewhat fast but she did not appear to have any type of neurological sequelae. Routine blood test demonstrated labs consistent with her known history of end-stage renal disease and a CT scan of her head did not demonstrate any acute intracranial process. She remained alert and oriented x4 but her mentation still did not seem to be back to baseline. It was felt that her Valtrex dosing may have been too much for her known history of end-stage renal disease and may account for her altered mental status. She was subsequent admitted to the hospital for further evaluation. Renal consultation was requested due to her end-stage renal disease. The patient is quite familiar to me as I take care of her outpatient dialysis needs. She normally dialyzes on a Tuesday, Tuesday, Tuesday at [facility] under my care. As already mentioned above, she did receive about an hour dialysis treatment before it was discontinued and she was sent to the em
[2021-11-11 21:21] LABS: Glucose Point of Care 158 mg/dl (65-105)
[2021-11-11] MEDS: INSULIN GLARGINE (*BKC) 100 UNITS/ML 20 UNITS SUB-Q (21:23)
[2021-11-11] MEDS: HEPARIN SODIUM 5,000 UNITS/ML VIAL 5000 UNITS SUB-Q (21:23)
[2021-11-12] MEDS: ACETAMINOPHEN 325 MG TABLET 650 MG PO ×2 (02:52→12:40)
[2021-11-12 04:53] VITALS: BP 128/65; PULSE 78; RESP 16; TEMP 36.4; O2SAT 98
[2021-11-12 05:49] LABS: Basophils Percent Auto 0.3 % (0.2-1.2); Eosinophils Percent Auto 0.3 % (0-4.4); Hematocrit 31.6 % (37.0-47.0); Hemoglobin 9.7 g/dL (12.0-15.0); Immature Granulocyte Absolute 0.01 K/mm3 (0.00-0.031); Immature Granulocyte Percent A 0.3 % (0-0.5); Lymphocytes Absolute Auto 0.77 K/mm3 (0.9-3.2); Lymphocytes Percent Auto 26.6 % (18.3-44.2); Mean Corpuscular HGB Conc 30.7 g/dl (32-36); Mean Corpuscular Hemoglobin 28.3 pg (26-34); Mean Corpuscular Volume 92.1 fl (80-100); Mean Platelet Volume 9.3 fl (7.4-10.4); Monocytes Absolute Auto 0.4 K/mm3 (0.1-0.6); Monocytes Percent Auto 13.1 % (2.6-8.5); Neutrophils Absolute Auto 1.7 K/mm3 (1.3-6.7); Neutrophils Percent Auto 59.4 % (45.5-73.1); Platelet Count Result 124 k/mm3 (150-375); Red Blood Count 3.43 M/mm3 (4.2-5.4); Red Cell Distribution Width 15.3 % (11.5-14.5); White Blood Count 2.9 K/mm3 (4.5-10.0)
[2021-11-12 06:26] LABS: Albumin Level 3.9 g/dL (3.5-5.1); Anion Gap 9 mmol/L (8-16); Blood Urea Nitrogen 34 mg/dL (7-17); Calcium 8.6 mg/dL (8.4-10.2); Carbon Dioxide 30 mmol/L (22-30); Chloride 95 mmol/L (98-107); Estimated CRCL calculation 14 ml/min; Estimated Glomerular Filt Rate 10; Glucose 144 mg/dL (65-110); Magnesium 2.1 mg/dL (1.6-2.3); Phosphorus 3.6 mg/dL (2.5-4.5); Potassium 4.1 mmol/L (3.4-5.0); Sodium 134 mmol/L (137-145)
[2021-11-12 07:22] LABS: Glucose Point of Care 147 mg/dl (65-105)
[2021-11-12 08:17] VITALS: O2SAT 98
[2021-11-12] MEDS: SEVELAMER CARBONATE 800 MG TABLET PO ×2 (08:20→12:21)
[2021-11-12] MEDS: HEPARIN SODIUM 5,000 UNITS/ML VIAL 5000 UNITS SUB-Q (08:20)
[2021-11-12 11:28] LABS: Glucose Point of Care 130 mg/dl (65-105)
--- NOTE | 2021-11-12 13:39 | PM.PNNEP ---
Progress Note: A&P Assessment and Plan (1) End stage renal disease: Code(s): N18.6 - End stage renal disease Status: Chronic Assessment and Plan: HD tomorrow to maintain M/W/F schedule follow electrolytes, volumes status, and clearance (2) Altered mental status: Qualifiers: Altered mental status type: unspecified Qualified Code(s): R41.82 - Altered mental status, unspecified Code(s): R41.82 - Altered mental status, unspecified Status: Acute Assessment and Plan: seems to be doing better currently CT of brain negative felt to be due to Valtrex overdosing -- for ESRD, should be 500mg qday but was prescribed 1 gram tid follow mentation with Valtrex on hold (3) Hypertension: Code(s): I10 - Essential (primary) hypertension Status: Chronic Assessment and Plan: reasonable control at this time continue home medications follow trend of hemodynamics (4) Anemia: Code(s): D64.9 - Anemia, unspecified Status: Chronic Assessment and Plan: due to ESRD Epogen with HD follow trend of H/H (5) Diabetes: Code(s): E11.9 - Type 2 diabetes mellitus without complications Status: Chronic Assessment and Plan: follow accuchecks glycemic control Will continue to follow. Subjective Date/time seen: 11/12/21 13:39 Tolerated dialysis yesterday and mentation appears to be slowing improving back to baseline; no acute distress voiced at this time; anxious for discharge; no issues/events overnight or earlier this AM. Exam Narrative: General: WD/WN female in NAD Heart: normal S1 and S2; no rub Lungs: clear to auscultation Abdomen: soft, nontender, nondistended, positive bowel sounds Extremities: no cyanosis or clubbing; no edema Skin: warm and dry Objective Data Vital Signs Vital Signs: Vital Signs Temp Pulse Resp BP Pulse Ox 11/12/21 08:17 98 11/12/21 04:53 36.4 C 78 16 128/65 98 11/11/21 21:18 37.6 C H 87 18 148/70 H 100 11/11/21 21:00 37.9 C H 89 16 137/62 11/11/21 20:50 91 129/52 L 11/11/21 20:45 90 135/90 11/11/21 20:30 85 134/63 11/11/21 20:15 87 149/66 H 11/11/21 20:00 88 151/90 H 11/11/21 19:45 84 148/72 H 11/11/21 19:30 84 140/69 11/11/21 19:15 89 140/73 11/11/21 19:00 84 141/75 H 11/11/21 18:45 85 134/75 11/11/21 18:30 87 144/74 H 11/11/21 18:15 86 127/66 11/11/21 18:00 37.1 C 94 16 137/68 Intake/Output Intake/Output: Intake & Output 11/09/21 11/10/21 11/11/21 11/12/21 23:59 23:59 23:59 23:59 Intake Total 200 600 Output Total 2000 Balance -1800 600 Meds/Results Medications: Active Medications Generic Name Dose Route Start Last Admin Trade Name Freq PRN Reason Stop Dose Admin Acetaminophen 650 mg 11/11/21 15:32 11/12/21 12:40 Acetaminophen 325 Mg Tablet PO 650 mg Q6H PRN Administration Mild Pain (1-3) Or Fever Dextrose 12.5 gm 11/11/21 12:33 Dextrose 50% 25 Gm/50 Ml Syringe IV PUSH PRN PRN Hypoglycemia Protocol Ergocalciferol 50,000 unit 11/11/21 09:00 11/11/21 17:36 Ergocalciferol 50,000 Unit Capsule PO 50,000 unit We@0900 RENEA Administration Glucagon 1 mg 11/11/21 12:33 Glucagon For Inj 1 Mg Vial IM PRN PRN Hypoglycemia Protocol Glucose 15 gm 11/11/21 12:33 Glucose Oral Gel 15 Gm Of Glucse In 37.5 Gm Tube PO PRN PRN Hypoglycemia Protocol Heparin Sodium (Porcine) 5,000 units 11/11/21 21:00 11/12/21 08:20 Heparin Sodium 5,000 Units/Ml Vial SUB-Q 5,000 units Q12HR RENEA Administration Hydralazine HCl 10 mg 11/11/21 15:34 Hydralazine Hcl 20 Mg/Ml Vial IV PUSH Q8H PRN Blood Pressure - High Albumin Human 50 mls @ 999 mls/hr 11/11/21 12:27 Albutein IVPB 12/11/21 12:26 Q10M PRN HYPOTENSION Dextrose 1,000 mls @ 100 mls/hr 11/11/
[2021-11-12 14:00] VITALS: BP 149/71; PULSE 81; RESP 16; TEMP 36.9; O2SAT 100
--- NOTE | 2021-11-12 14:12 | PM.DS ---
DS: Admitting Diagnosis Discharge Date 11/12/21 Admitting Diagnosis AMS DS: Discharge Diagnosis Discharge Diagnosis (1) Altered mental status: Qualifiers: Altered mental status type: unspecified Qualified Code(s): R41.82 - Altered mental status, unspecified Code(s): R41.82 - Altered mental status, unspecified Status: Acute Assessment and Plan: Presented following episode of confusion receiving dialysis. Patient states she zoned out. Patient was A&Ox4 during my encounter and was feeling back to her usual state of health. Suspect this may be due to recent additional of valacyclovir due to shingles. Patient was started on 1000 mg t.i.d. 4 days prior to presentation which was changed to 500 mg once daily for renal dosing to complete 7 days of therapy. (2) ESRD needing dialysis: Code(s): N18.6 - End stage renal disease; Z99.2 - Dependence on renal dialysis Status: Acute Assessment and Plan: She was seen in consultation by Nephrology and received hemodialysis on 11/11/2021 during admission. Next dialysis 11/13 at outpatient facility. (3) Type 2 diabetes mellitus with end-stage renal disease: Code(s): E11.22 - Type 2 diabetes mellitus with diabetic chronic kidney disease; N18.6 - End stage renal disease Status: Acute Assessment and Plan: Blood sugars well controlled during admission. Continue home insulin regimen. (4) Pancytopenia: Code(s): D61.818 - Other pancytopenia Status: Acute Assessment and Plan: Mild pancytopenia noted. Anemia appears chronic. May be due to antiviral therapy. Repeat CBC in 1 week to assess for improvement. (5) Shingles: Code(s): B02.9 - Zoster without complications Status: Acute Assessment and Plan: Shingles outbreak on right back/flank. Continue valacyclovir as above, renally dosed at 500 mg daily. DS: Summary Hospital Course Hospital Course: Date of admission: 11/11/2021 Date of discharge: 11/12/2021 Kate Bentley is a 60-year-old female with a history of anemia of chronic disease, CHF, ESRD on hemodialysis, and type 2 diabetes mellitus who presented to the emergency department on 11/11/2021 due to an episode of confusion during dialysis. On presentation to the ED, she was noted to have mild pancytopenia, head CT showed no acute findings. She was admitted to the hospitalist service for further evaluation management was seen in consultation by nephrology to continue her dialysis schedule. Her mental status was at baseline during her admission. Symptoms resolved entirely. She will continue her hemodialysis schedule. She was feeling back to her usual state of health and was eager for discharge. Given overall improvement, she was determined to no longer require inpatient care and was discharged in hemodynamically stable condition on 11/12/2021. Discussed worrisome signs and symptoms for which to return and she was educated on her medications. She will follow-up with her PCP in 1 week after obtaining repeat labs. Status at Discharge Functional status at discharge: independent ambulation Overall status at discharge: patient is back to baseline Time Spent with Patient Time attestation: Total time spent providing and/or coordinating discharge services: 40 minutes Time spent: Greater than 30 minutes Exam Narrative: General: obese, chronically ill appearing 60-year-old female, sitting in her wheelchair, comfortable, NARD Neuro: awake, alert and oriented x4, speech clear, no focal neuro deficits noted HEENMT: normocephalic, atraumatic, EOMI, sclerae anicteric Respiratory: clear to auscultation bilaterally, nonlabored breathing Cardio: regular rate, regular rhythm with S1-S2 Abdomen: nondistended, normoactive bowel sounds, soft, nontender to palpation Extremities: no edema, erythema, or tenderness to palpation Skin: vesicular rash of right back/flank in dermatomal distribution,
[2021-11-12] MEDS: valACYclovir HCL 500 MG TABLET PO (14:42)
[2021-11-16 02:19] LABS: Hepatitis B Core Ab Total Nonreactive (Nonreactive)
== END 2021-11-12 15:15 | disposition home or self-care (01) ==
LOC: ANHED 11:47 → ANH3MED 12:24
PROVIDERS: Internal Medicine Nephrology; Nurse Practitioner Adult Health; Student in an Organized Health Care Education/Training Program; Admitting Provider Family Medicine; Emergency Provider Emergency Medicine; Visit Provider Physician Assistant
DX: R41.82 Altered mental status, unspecified (principal); E11.22 Type 2 diabetes mellitus with diabetic chronic kidney disease; N18.6 End stage renal disease; Z99.2 Dependence on renal dialysis; I13.2 Hypertensive heart and chronic kidney disease with heart failure and with stage 5 chronic kidney disease, or end stage renal disease; D69.6 Thrombocytopenia, unspecified; D63.1 Anemia in chronic kidney disease; D61.818 Other pancytopenia; B02.9 Zoster without complications; I50.9 Heart failure, unspecified
CPT/HCPCS: 36415; 70450; 71045; 80048; 80069; 82948; 83735; 85025; 86704; 86706; 87340; 93005; 94640; 96372; 99285; A9270; G0257; G0378; J1644; J1815; J7030